=== PATIENT | female | born 1970 | race Caucasian/White ===

== ENCOUNTER → 2016-11-21 | Outpatient (CLI) | payer OTHER ==
[2016-11-21 16:45] LABS: CH 30.9; CHCM 32.9; HCT 44.9 % (34.0-46.0); HDW 2.51; HGB 14.5 gm/dL (11.4-16.0); MCH 30.4 pg (25.0-35.0); MCHC 32.2 g/dL (31.0-37.0); MCV 94.3 fL (80.0-100.0); Mean Platelet Volume 7.7; RBC 4.76 m/uL (3.80-5.40); RDW 13.5 % (11.5-15.5); WBC 10.7 k/uL (3.8-10.6)
[2016-11-21 16:53] LABS: Appearance,Urine Cloudy (Clear); Bacteria,Urine Rare /hpf; Bilirubin,Urine Negative (Negative); Glucose,Urine (UA) Negative (Negative); Ketones,Urine Negative (Negative); Leukocyte Esterase,Urine Negative (Negative); Mucus,Urine Rare /hpf; Nitrite,Urine Negative (Negative); Particle Count 3307; Protein,Urine Negative (Negative); RBC,Urine 2 /hpf (0-5); Specific Gravity,Urine 1.018 (1.001-1.035); Squamous Epithelial Cell,Urine 3 /hpf (0-4); UA Billing (MACRO vs. MICRO) MICRO; Urobilinogen,Urine <2.0 mg/dL (<2.0); WBC,Urine 2 /hpf (0-5)
[2016-11-21 17:14] LABS: Anion Gap 8 mmol/L; Blood Urea Nitrogen 15 mg/dL (7-17); Calcium 9.8 mg/dL (8.4-10.2); Carbon Dioxide 25 mmol/L (22-30); Chloride 108 mmol/L (98-107); Glucose 82 mg/dL (74-99); Iron 75 ug/dL (37-170); Non-African American GFR(MDRD) 54 (>60 ml/min/1.73 sqM); Potassium 4.9 mmol/L (3.5-5.1); Sodium 141 mmol/L (137-145)
[2016-11-21 17:23] LABS: % Iron Saturation 22.9 % (20-50); Total Iron Binding Capacity 327 ug/dL (265-497)
== END | disposition home or self-care (01) ==
LOC: LABWHC1 16:06
PROVIDERS: ATTEND Nurse Practitioner Family
DX: N18.3 Chronic kidney disease, stage 3 (moderate) (principal); D64.9 Anemia, unspecified; E83.39 Other disorders of phosphorus metabolism; M10.9 Gout, unspecified; N39.0 Urinary tract infection, site not specified
CPT/HCPCS: 36415; 80048; 81001; 82306; 82728; 83540; 83550; 83970; 85027

== ENCOUNTER → 2016-12-25 | Outpatient (CLI) | payer OTHER | END | disposition home or self-care (01) | LOC: LABWHC1 09:45 | PROVIDERS: ATTEND Family Medicine | DX: G62.9 Polyneuropathy, unspecified (principal) | CPT/HCPCS: 36415; 82390; 83921; 86141 ==

== ENCOUNTER → 2017-02-12 | Outpatient (CLI) | payer OTHER ==
--- NOTE | 2017-02-12 15:17 | CT ---
EXAMINATION TYPE: CT abdomen pelvis wo con DATE OF EXAM: 02/12/2017 2:13 PM COMPARISON: 09/26/2016 HISTORY: 47-year-old female Patient complains of bloating and pelvic pain. CT DLP: 1242.3 mGycm. Automated exposure control for dose reduction was used. TECHNIQUE: Contiguous axial scanning of the abdomen and pelvis without IV contrast. Coronal and sagit debbie reconstructions performed. FINDINGS: The heart is normal size without pericardial effusion. 5 mm left basilar pulmonary nodule unchanged f rom 09/26/2016. Additional 6 month follow-up CT chest can be performed to reassess. No pleural effusi on. Liver is borderline to mildly enlarged at 18.4 cm craniocaudal with mildly diminished attenuation sug gesting some degree of fatty infiltration. Cholecystectomy clips are present. Adrenal glands, kidneys, spleen, and pancreas appear within normal limits. Retroaortic left renal vein. No dilated small bowel, free fluid, or free air. No mesenteric or retroperitoneal lymphadenopathy. Interval placement of a distal aortobiiliac stents. Scattered mild to moderate stool without pericolonic inflammatory change. Bladder is urine distended. Uterus and ovaries are visualized. No abnormal fluid collection in the pe lvis nor pelvic lymphadenopathy. Bones: Degenerative changes lower lumbar spine. No osseous destructive process. IMPRESSION: 1. Correlate for hepatic steatosis with LFTs, lipid profile, and patient risk factors. 2. A 5 mm left basilar pulmonary nodule stable from 09/26/2016. Additional 6 month follow-up CT ches t can reassess. A total of 2 years of stability would help support a benign etiology. 3. Interval biiliac stent placement. Noncontrast examination limits assessment for patency.
== END | disposition home or self-care (01) ==
LOC: RADCTMAIN 13:56
PROVIDERS: ATTEND Family Medicine
DX: R10.9 Unspecified abdominal pain (principal); R14.0 Abdominal distension (gaseous); Z96.89 Presence of other specified functional implants
CPT/HCPCS: 74176

== ENCOUNTER → 2017-04-04 | Outpatient (CLI) | payer OTHER ==
[2017-04-04 17:27] LABS: ALT 21 U/L (9-52); AST 13 U/L (14-36)
[2017-04-04 18:16] LABS: Hepatitis C Virus IgG Ab Negative (Negative); Hepatitis C Virus IgG Index 0.02
== END ==
LOC: LABWHC1 16:12
PROVIDERS: ATTEND Family Medicine
DX: K76.0 Fatty (change of) liver, not elsewhere classified (principal)
CPT/HCPCS: 36415; 84450; 84460; 85610; 86803

== ENCOUNTER → 2017-04-05 | Outpatient (CLI) | payer OTHER ==
--- NOTE | 2017-04-06 10:15 | MR ---
MR left ankle and foot HISTORY: Pain, post trauma open reduction internal fixation, erythema and clicking Multiplanar multisequence imaging obtained through the left ankle and foot There is no plain film for correlation Multiple foci of susceptibility artifact are present at the lateral aspect of the ankle within the so ft tissues at the level of the distal fibula, there is some local bone marrow edema within the fibula with a suggested fracture line which is nondisplaced. Subcutaneous edema changes are present about t he ankle. Small focus of marrow edema present along the medial malleolus. There is spurring at the ti biotalar joint. Ossific density is present anterior to the joint compatible with loose body measuring 8 to 9 mm, there is a joint effusion present. Marrow edema also present within the cuboid. Some loca l thickening present at the peroneus longus tendon compatible with tendinosis. Some minimal marrow ed jf also present at the tarsometatarsal joint of the second digit most likely due to osteoarthritic c hange. Plantar aponeurosis, Achilles tendon are intact. Flexor and extensor tendons are intact, fluid present along the tibialis posterior tendon compatible with some tenosynovitis. Some increased signa l present at the posterior aspect of the talus may represent some marrow edema with minimally displac ed fracture rather than accessory ossicle, some remodeling may be present versus possibly posttraumat ic change. IMPRESSION: Findings compatible with fracture of the distal fibula, correlate with appropriate histor y, some local marrow edema persists. Peroneal tendinosis, local bone marrow edema at the cuboid may b e due to altered mechanics. Loose body within the ankle joint, osteoarthritis. Postop changes, correl ate for possible cellulitis, difficult to exclude infection at the patient's fracture site. Correlati on with plain film likely would be of benefit.
== END | disposition home or self-care (01) ==
LOC: RADMRIMAIN 19:37
PROVIDERS: ATTEND Family Medicine
DX: M19.072 Primary osteoarthritis, left ankle and foot (principal); M67.874 Other specified disorders of tendon, left ankle and foot; M24.072 Loose body in left ankle; Z98.890 Other specified postprocedural states

== ENCOUNTER → 2017-05-30 | Outpatient (CLI) | payer OTHER ==
[2017-05-30 15:45] LABS: CH 28.4; CHCM 32.1; HCT 46.3 % (34.0-46.0); HDW 2.76; MCH 28.7 pg (25.0-35.0); MCHC 32.3 g/dL (31.0-37.0); MCV 88.9 fL (80.0-100.0); RBC 5.21 m/uL (3.80-5.40); WBC 10.5 k/uL (3.8-10.6)
[2017-05-30 15:51] LABS: Anion Gap 12 mmol/L; Blood Urea Nitrogen 18 mg/dL (7-17); Calcium 9.6 mg/dL (8.4-10.2); Carbon Dioxide 19 mmol/L (22-30); Chloride 109 mmol/L (98-107); Glucose 117 mg/dL (74-99); Iron 27 ug/dL (37-170); Non-African American GFR(MDRD) 60 (>60 ml/min/1.73 sqM); Potassium 4.7 mmol/L (3.5-5.1); Sodium 140 mmol/L (137-145)
[2017-05-30 15:53] LABS: Appearance,Urine Cloudy (Clear); Bilirubin,Urine Negative (Negative); Glucose,Urine (UA) Negative (Negative); Ketones,Urine Negative (Negative); Leukocyte Esterase,Urine Small (Negative); Mucus,Urine Rare /hpf; Nitrite,Urine Negative (Negative); Particle Count 3550; Protein,Urine Trace (Negative); RBC,Urine 1 /hpf (0-5); Specific Gravity,Urine 1.019 (1.001-1.035); Squamous Epithelial Cell,Urine 10 /hpf (0-4); UA Billing (MACRO vs. MICRO) MICRO; Urobilinogen,Urine <2.0 mg/dL (<2.0); WBC,Urine 5 /hpf (0-5)
[2017-05-30 16:00] LABS: % Iron Saturation 6.5 % (20-50); Total Iron Binding Capacity 413 ug/dL (265-497)
== END | disposition home or self-care (01) ==
LOC: LABWHC1 15:08
PROVIDERS: ATTEND Nurse Practitioner Family
DX: N18.3 Chronic kidney disease, stage 3 (moderate) (principal); D63.1 Anemia in chronic kidney disease; N39.0 Urinary tract infection, site not specified; E21.3 Hyperparathyroidism, unspecified; E55.9 Vitamin D deficiency, unspecified
CPT/HCPCS: 36415; 80048; 81001; 82306; 82728; 83540; 83550; 83970; 85027

== ENCOUNTER → 2017-11-27 | Outpatient (CLI) | payer OTHER ==
[2017-11-27 16:10] LABS: Appearance,Urine Clear (Clear); Bilirubin,Urine Negative (Negative); Blood,Urine Negative (Negative); Color,Urine Yellow; Glucose,Urine (UA) Negative (Negative); Ketones,Urine Negative (Negative); Leukocyte Esterase,Urine Negative (Negative); Nitrite,Urine Negative (Negative); PH, Urine 6.5 (5.0-8.0); Protein,Urine Negative (Negative); Specific Gravity,Urine 1.019 (1.001-1.035); Urobilinogen,Urine <2.0 mg/dL (<2.0)
[2017-11-27 16:28] LABS: Calcium 9.7 mg/dL (8.4-10.2)
[2017-11-27 16:41] LABS: HCT 46.2 % (34.0-46.0); HGB 14.3 gm/dL (11.4-16.0); Hypochromasia Slight; MCH 26.3 pg (25.0-35.0); MCHC 30.9 g/dL (31.0-37.0); MCV 85.1 fL (80.0-100.0); Mean Platelet Volume 6.5; Platelet Count 470 k/uL (150-450); RBC 5.44 m/uL (3.80-5.40); RDW 15.2 % (11.5-15.5); WBC 12.2 k/uL (3.8-10.6)
[2017-11-28 01:15] LABS: Iron Saturation 7.55 (12.00-45.00)
[2017-11-28 01:25] LABS: Vitamin D 25 Hydroxy 39.4 ng/mL (30.0-100.0)
[2017-11-28 02:23] LABS: Parathyroid Hormone Intact 90.6 pg/mL (14.0-72.0)
== END | disposition home or self-care (01) ==
LOC: LABWHC1 15:07
PROVIDERS: ATTEND Nurse Practitioner Family
DX: N39.0 Urinary tract infection, site not specified (principal); E21.3 Hyperparathyroidism, unspecified; N18.3 Chronic kidney disease, stage 3 (moderate); D63.1 Anemia in chronic kidney disease; N25.81 Secondary hyperparathyroidism of renal origin
CPT/HCPCS: 36415; 80048; 81003; 82306; 82728; 83540; 83550; 83970; 85027

== ENCOUNTER → 2018-01-20 | Outpatient (CLI) | payer OTHER ==
[2018-01-20 11:24] LABS: Cholesterol 202 mg/dL (<200); HDL Cholesterol 35 mg/dL (40-60); LDL Cholesterol,Calculated 115 mg/dL (0-99); Triglycerides 259 mg/dL (<150)
== END | disposition home or self-care (01) ==
LOC: LABWHC1 10:39
PROVIDERS: ATTEND Internal Medicine Cardiovascular Disease
DX: E78.01 Familial hypercholesterolemia (principal)
CPT/HCPCS: 36415; 80061

== ENCOUNTER → 2018-06-06 | Outpatient (CLI) | payer OTHER ==
[2018-06-06 15:52] LABS: Calcium 10.3 mg/dL (8.4-10.2); Potassium 3.7 mmol/L (3.5-5.1)
[2018-06-06 15:57] LABS: Amorphous Sediment,Urine Few /hpf; Appearance,Urine Cloudy (Clear); Bilirubin,Urine Negative (Negative); Blood,Urine Negative (Negative); Color,Urine Yellow; Glucose,Urine (UA) Negative (Negative); Hyaline Casts,Urine 1 /lpf (0-2); Ketones,Urine Negative (Negative); Leukocyte Esterase,Urine Small (Negative); Mucus,Urine Occasional /hpf; Nitrite,Urine Negative (Negative); Protein,Urine Trace (Negative); RBC,Urine 1 /hpf (0-5); Specific Gravity,Urine 1.018 (1.001-1.035); Squamous Epithelial Cell,Urine 19 /hpf (0-4); Urobilinogen,Urine <2.0 mg/dL (<2.0); WBC,Urine 14 /hpf (0-5)
[2018-06-06 16:12] LABS: HCT 46.8 % (34.0-46.0); HGB 15.1 gm/dL (11.4-16.0); MCH 29.2 pg (25.0-35.0); MCHC 32.3 g/dL (31.0-37.0); MCV 90.1 fL (80.0-100.0); Platelet Count 427 k/uL (150-450); RBC 5.19 m/uL (3.80-5.40); RDW 14.4 % (11.5-15.5); WBC 14.7 k/uL (3.8-10.6)
[2018-06-06 19:14] LABS: Iron Saturation 15.85 (12.00-45.00)
[2018-06-06 19:24] LABS: Parathyroid Hormone Intact 31.7 pg/mL (14.0-72.0); Vitamin D 25 Hydroxy 49.4 ng/mL (30.0-100.0)
== END | disposition home or self-care (01) ==
LOC: LABWHC1 15:23
PROVIDERS: ATTEND Nurse Practitioner Family
DX: N18.3 Chronic kidney disease, stage 3 (moderate) (principal); D63.1 Anemia in chronic kidney disease; N25.81 Secondary hyperparathyroidism of renal origin; N39.0 Urinary tract infection, site not specified
CPT/HCPCS: 36415; 80048; 81001; 82306; 82728; 83540; 83550; 83970; 85027

== ENCOUNTER → 2018-07-08 | Outpatient (CLI) | payer OTHER ==
[2018-07-08 09:46] VITALS: BP 136/76; PULSE 73; TEMP 96.6; BMI 47.7
--- NOTE | 2018-07-08 11:43 | P.HPOB ---
History of Present Illness H&P Date: 07/08/18 Chief Complaint: The patients here for routine gynecologic exam and mammogram. This is a 48-year-old with an LMP of 06/20/2018. She is status post tubal ligation. The patient has multiple complaints. She states her menses are typically 7-10 days long with 4 days of heavy flow. She does have a history of anemia and has required iron infusions. She is status post endometrial ablation about 10 years ago. She states they did help slightly with her heavy menstrual periods, however the again became heavy after time. She is also complaining of decreased sex drive, facial hair growth and intermittent ovarian pains. She states she has to shave chin hair daily. Review of Systems She states her weight can fluctuate between 267 and 287 pounds. She believes she is gained 100 pounds over the past several years. She denies respiratory, cardiac, or G.I. problems. Past Medical History Past Medical History: Blood Disorder, Chest Pain / Angina, COPD, GERD/Reflux, Hyperlipidemia, Hypertension, Renal Disease (Renal failure), Supraventricular Tachycardia (SVT), Thyroid Disorder (Hypothyroid), Vascular Disorder (Aortic and iliac blockage requiring stents in 2016.) Additional Past Medical History / Comment(s): ANEMIA. Migraine headaches. 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 She is status post endometrial ablation in 2007. History of Any Multi-Drug Resistant Organisms: None Reported Past Surgical History: Cholecystectomy, Orthopedic Surgery (Foot and ankle), Tubal Ligation, Uterine Ablation Additional Past Surgical History / Comment(s): STENTS AORTA AND BILATERAL FEMORAL STENTS. Past Anesthesia/Blood Transfusion Reactions: No Reported Reaction Past Psychological History: Bipolar Additional Psychological History / Comment(s): OCD and personality disorder. Smoking Status: Former smoker (Quit 2013) Past Alcohol Use History: None Reported Past Drug Use History: Marijuana Additional History: She is . She has not been sexually active since 2016. - Past Family History Mother Family Medical History: Unable to Obtain Additional Family Medical History / Comment(s): She is adopted and knows only small amounts of her family's history. Father Family Medical History: Unable to Obtain Additional Family Medical History / Comment(s): Father committed suicide. Medications and Allergies Home Medications Medication Instructions Recorded Confirmed Type Acetaminophen-Codeine 300-30mg 1 tab PO DIRECTED PRN 12/16/17 07/08/18 History [Tylenol w/codeine #3] Asenapine Maleate [Saphris] 10 mg PO BID 12/16/17 07/08/18 History Atorvastatin [Lipitor] 80 mg PO DAILY 12/16/17 07/08/18 History Butalb/Acetaminophen/Caffeine 1 cap PO DIRECTED PRN 12/16/17 07/08/18 History [Fioricet 50-300-40 mg Capsule] Calcitriol 0.25 mcg PO DAILY 12/16/17 07/08/18 History Clopidogrel Bisulfate [Plavix] 75 mg PO DAILY 12/16/17 07/08/18 History Dextroamphetamine/Amphetamine 20 mg PO TID 12/16/17 07/08/18 History [Adderall] Enalapril [Vasotec] 5 mg PO DAILY 12/16/17 07/08/18 History Ergocalciferol [Vitamin D2 50,000 units PO WEEKLY 12/16/17 07/08/18 History (DRISDOL)] Gabapentin [Neurontin] 300 mg PO DAILY 12/16/17 07/08/18 History Levothyroxine Sodium [Synthroid] 200 mcg PO DAILY 12/16/17 07/08/18 History Magnesium Oxide 400 mg PO DAILY 12/16/17 07/08/18 History Propranolol HCl [Propranolol HCl 160 mg pe PO DAILY 12/16/17 07/08/18 History ER] amLODIPine [Norvasc] 10 mg PO DAILY 12/16/17 07/08/18 History clonazePAM [KlonoPIN] 0.5 mg PO DIRECTED 12/16/17 07/08/18 History lamoTRIgine [LaMICtal] 150 mg PO BID 12/16/17 07/08/18 History Allergies Allergy/AdvReac Type Severity Reaction Status Date / Time Penicillins Allergy Dyspnea Verified 07/08/18 09:21 Exam Vital Signs Temp Pulse BP 07/08/18 09:42 96.6 F L 73 136/76 Intake and Output 07/07/18 07/08/18 07/08/18 22:59 06:59 14:59 Other: Weight 126.099 kg Height 5'4", BMI 47.7. This is a well-developed well-nourished obese white female who is alert and oriented times 3 in no acute distress. HEENT: there are some signs of coarse facial hair growth of the chin. NECK: Supple without mass or thyromegaly. CHEST AND LUNGS: Clear to auscultation. HEART: Regular rate and rhythm. BREASTS: Are without mass or discharge. There is mild right generalized breast tenderness which she states she has had for many years. AXILLARY EXAM: Negative for adenopathy. BACK: Negative for CVA tenderness. ABDOMEN: Soft, obese, nontender, without palpable masses. PELVIC EXAM: Normal external genitalia. Cervix is multiparous without lesions and vagina appear normal. There is no unusual discharge. There is no evidence of prolapse. The uterus is midposition, multiparous, nongravid size and nontender. There are no palpable adnexal masses or tenderness. Bimanual examination is somewhat limited secondary to her size. RECTAL EXAM: negative for mass or tenderness and is negative for occult blood. EXTREMITIES: Nontender. IMPRESSION: 1. 48-year-old obese female status post tubal ligation with normal gynecologic exam. 2. Menorrhagia which probably is contributing to her anemia. The anemia may also be related to her chronic renal failure. Her heavy menstrual periods may also be related to her Plavix use. 3. Hypoactive sexual desire disorder. 4. Hirsutism PLAN: 1. Pap smear was performed. 2. Self breast awareness was discussed with the patient. 3. Diagnostic mammogram will be done today because of her abnormal mammogram in 2013 for which she did not have follow-up. 4. Lab tests will include FSH, estradiol, CBC, TSH, T4, total and free testosterone, and DHEA S. 5. All the culture son will be scheduled. 6. Consider for referral for possible hysterectomy. She states she is unable to take any type of NSAID medication. She is also not a good candidate for hormonal treatment for her menstrual periods. 7. She will also return in one year and PRN.
[2018-07-08 11:48] LABS: HCT 47.2 % (34.0-46.0); HGB 15.4 gm/dL (11.4-16.0); MCH 30.7 pg (25.0-35.0); MCHC 32.6 g/dL (31.0-37.0); MCV 94.3 fL (80.0-100.0); Mean Platelet Volume 6.4; Platelet Count 417 k/uL (150-450); RBC 5.01 m/uL (3.80-5.40)
[2018-07-08 12:23] LABS: T4, Free (Free Thyroxine) 1.81 ng/dL (0.78-2.19)
[2018-07-08 16:41] LABS: DHEA Sulfate 151.9 ug/dL (26.0-430.0)
--- NOTE | 2018-07-09 10:33 | MM ---
Reason for exam: follow-up at short interval from prior study. Last mammogram was performed 3 years and 10 months ago. History: Family history of breast cancer in maternal grandmother. Physical Findings: Dr. Mims did not find any significant physical abnormalities on exam. MG Diagnostic Mammo w CAD TOM Bilateral CC and MLO view(s) were taken. Prior study comparison: September 01, 2014, right breast MG work up mamm w CAD RT. August 25, 2014, bilateral MG screening mammo w CAD. There are scattered fibroglandular densities. Scattered round and punctate calcifications are unchanged. No significant new findings when compared with previous films. These results were verbally communicated with the patient and result sheet given to the patient on 07/08/18. ASSESSMENT: Negative, BI-RAD 1 RECOMMENDATION: Routine screening mammogram of both breasts in 1 year.
== END | disposition home or self-care (01) ==
LOC: WWCWWP 09:14
PROVIDERS: ATTEND Obstetrics & Gynecology
DX: R92.8 Other abnormal and inconclusive findings on diagnostic imaging of breast (principal); L68.0 Hirsutism; N92.0 Excessive and frequent menstruation with regular cycle; D64.9 Anemia, unspecified; F52.0 Hypoactive sexual desire disorder
CPT/HCPCS: 36415; 77066; 82627; 82670; 83001; 84402; 84403; 84439; 84443; 85027

== ENCOUNTER → 2018-07-15 | Outpatient (CLI) | payer OTHER ==
--- NOTE | 2018-07-15 13:45 | US ---
EXAMINATION TYPE: US pelvic complete DATE OF EXAM: 07/15/2018 COMPARISON: CT 02/12/2017, US 06/02/2014 CLINICAL HISTORY: N92.0 Menorrhagia, R10.2 Pelvic pain. Ablation about 15 years ago. Heavy periods TECHNIQUE: . Transabdominal sonographic images of the pelvis were acquired. Date of LMP: About 2 weeks ago EXAM MEASUREMENTS: Uterus: 11.3 x 5.5 x 6.6 cm Endometrial Stripe: 0.4 cm Right Ovary: 2.9 x 1.7 x 2.9 cm Left Ovary: 2.7 x 1.5 x 1.7 cm 1. Uterus: Anteverted Enlarged, heterogeneous 2. Endometrium: wnl 3. Right Ovary: Follicles visualized, largest measuring 1.3 cm 4. Left Ovary: wnl 5. Bilateral Adnexa: wnl 6. Posterior cul-de-sac: wnl IMPRESSION: 1. Simple appearing cyst measuring 1.3 cm right ovary.
== END | disposition home or self-care (01) ==
LOC: RADUSWWP 12:56
PROVIDERS: ATTEND Obstetrics & Gynecology
DX: R10.2 Pelvic and perineal pain (principal); N92.0 Excessive and frequent menstruation with regular cycle
CPT/HCPCS: 76856

== ENCOUNTER 2019-01-01 14:11 | Observation (INO) | payer OTHER ==
[2019-01-01 14:19] VITALS: RESP 18
[2019-01-01] MEDS ORDERED: NITROGLYCERIN OINT 1 INCH/GM PACKET TOPICAL STA (14:29)
[2019-01-01] MEDS ORDERED: ASPIRIN 81 MG PO STA (14:29)
--- NOTE | 2019-01-01 14:32 | ED ---
General Adult HPI - General Chief complaint: Chest Pain Stated complaint: Chest pain, sent by PCP Time Seen by Provider: 01/01/19 14:15 Source: patient, RN notes reviewed Mode of arrival: ambulatory Limitations: no limitations - History of Present Illness Initial comments: This is a 48-year-old female presents emergency Department complaining of some back pain that radiated to her chest and down her arm. Patient states the first time she had an episode of this was about 5 days ago. Patient states every time it occurs it lasts for a few hours and then eventually subsides. Patient states it is associated with some shortness of breath as well. Patient also states she has been diaphoretic when she gets this per patient states been intermittent for the last 5 days. Patient states went to see her primary medical care doctor and she wanted to be seen in emergency department. Patient states the pain now is subsided. Patient states she also has a MTHFR deficiency Patient states she also has a positive family history of heart disease. Patient states she is a smoker. Patient states she has diabetes and high blood pressure. She denies any lightheadedness dizziness. Patient denies any palpations. Patient isn't swelling to the legs or any calf tenderness. - Related Data Home Medications Medication Instructions Recorded Confirmed Acetaminophen-Codeine 300-30mg 1 tab PO DIRECTED PRN 12/16/17 07/31/18 [Tylenol w/codeine #3] Asenapine Maleate [Saphris] 10 mg PO BID 12/16/17 07/31/18 Atorvastatin [Lipitor] 80 mg PO DAILY 12/16/17 07/31/18 Butalb/Acetaminophen/Caffeine 1 cap PO DIRECTED PRN 12/16/17 07/31/18 [Fioricet 50-300-40 mg Capsule] Calcitriol 0.25 mcg PO DAILY 12/16/17 07/31/18 Clopidogrel Bisulfate [Plavix] 75 mg PO DAILY 12/16/17 07/31/18 Dextroamphetamine/Amphetamine 20 mg PO TID 12/16/17 07/31/18 [Adderall] Enalapril [Vasotec] 5 mg PO DAILY 12/16/17 07/31/18 Ergocalciferol [Vitamin D2 50,000 units PO WEEKLY 12/16/17 07/31/18 (DRISDOL)] Gabapentin [Neurontin] 300 mg PO DAILY 12/16/17 07/31/18 Levothyroxine Sodium [Synthroid] 200 mcg PO DAILY 12/16/17 07/31/18 Magnesium Oxide 400 mg PO DAILY 12/16/17 07/31/18 Propranolol HCl [Propranolol HCl 160 mg pe PO DAILY 12/16/17 07/31/18 ER] amLODIPine [Norvasc] 10 mg PO DAILY 12/16/17 07/31/18 clonazePAM [KlonoPIN] 0.5 mg PO DIRECTED 12/16/17 07/31/18 lamoTRIgine [LaMICtal] 150 mg PO BID 12/16/17 07/31/18 Desvenlafaxine Succinate [Pristiq] 50 mg PO DAILY 07/09/18 07/31/18 Allergies Allergy/AdvReac Type Severity Reaction Status Date / Time Penicillins Allergy Dyspnea Verified 01/01/19 14:16 Review of Systems ROS Statement: Those systems with pertinent positive or pertinent negative responses have been documented in the HPI. ROS Other: All systems not noted in ROS Statement are negative. Past Medical History Past Medical History: Blood Disorder, Chest Pain / Angina, COPD, GERD/Reflux, Hyperlipidemia, Hypertension, Renal Disease, Supraventricular Tachycardia (SVT) , Thyroid Disorder, Vascular Disorder Additional Past Medical History / Comment(s): ANEMIA. Migraine headaches. 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 She is status post endometrial ablation in 2007. History of Any Multi-Drug Resistant Organisms: None Reported Past Surgical History: Cholecystectomy, Orthopedic Surgery, Tubal Ligation, Uterine Ablation Additional Past Surgical History / Comment(s): STENTS AORTA AND BILATERAL FEMORAL STENTS. Past Anesthesia/Blood Transfusion Reactions: No Reported Reaction Past Psychological History: Bipolar Smoking Status: Former smoker Past Alcohol Use History: None Reported Past Drug Use History: Marijuana - Past Family History Mother Family Medical History: Unable to Obtain Additional Family Medical History / Comment(s): She is adopted and knows only small amounts of her family's history. Father Family Medical History: Unable to Obtain Additional Family Medical History / Comment(s): Father committed suicide. General Exam - General Exam Comments Initial Comments: GENERAL: Patient is well-developed and well-nourished. Patient is nontoxic and well- hydrated and is in mild distress. ENT: Neck is soft and supple. No significant lymphadenopathy is noted. Oropharynx is clear. Moist mucous membranes. Neck has full range of motion without eliciting any pain. EYES: The sclera were anicteric and conjunctiva were pink and moist. Extraocular movements were intact and pupils were equal round and reactive to light. Eyelids were unremarkable. PULMONARY: Unlabored respirations. Good breath sounds bilaterally. No audible rales rhonchi or wheezing was noted. CARDIOVASCULAR: There is a regular rate and rhythm without any murmurs gallops or rubs. ABDOMEN: Soft and nontender with normal bowel sounds. No palpable organomegaly was noted. There is no palpable pulsatile mass. SKIN: Skin is clear with no lesions or rashes and otherwise unremarkable. NEUROLOGIC: Patient is alert and oriented x3. Cranial nerves II through XII are grossly intact. Motor and sensory are also intact. Normal speech, volume and content. Symmetrical smile. MUSCULOSKELETAL: Normal extremities with adequate strength and full range of motion. No lower extremity swelling or edema. No calf tenderness. LYMPHATICS: No significant lymphadenopathy is noted PSYCHIATRIC: Normal psychiatric evaluation. Limitations: no limitations Course Vital Signs 01/01/19 14:16 Temperature 98 F Pulse Rate 94 Respiratory 18 Rate Blood Pressure 137/85 O2 Sat by Pulse 95 Oximetry Medical Decision Making - Medical Decision Making EKG shows normal sinus rhythm at 86 bpm ID interval 242 QRS is 96 QT interval 398 QTC is 476. Patient's EKG shows no ST segment elevation or depression however there is some Q waves in the inferior leads 3 and aVF Chest x-ray shows no acute abnormality. I spoke with Dr. Cotto he agreed to admit the patient admitted the patient I wrote admitting orders I consult cardiology I started the patient on heparin. Continue the heparin and aspirin and Nitropaste on the floor. - Lab Data Result diagrams: 01/01/19 14:50 Lab Results 01/01/19 01/01/19 01/01/19 Range/Units 14:50 14:50 14:50 WBC 10.1 (3.8-10.6) k/uL RBC 5.43 H (3.80-5.40) m/uL Hgb 16.7 H (11.4-16.0) gm/dL Hct 51.6 H (34.0-46.0) % MCV 95.0 (80.0-100.0) fL MCH 30.7 (25.0-35.0) pg MCHC 32.4 (31.0-37.0) g/dL RDW 14.0 (11.5-15.5) % Plt Count 352 (150-450) k/uL Neutrophils % 68 % Lymphocytes % 19 % Monocytes % 7 % Eosinophils % 2 % Basophils % 1 % Neutrophils # 6.9 (1.3-7.7) k/uL Lymphocytes # 1.9 (1.0-4.8) k/uL Monocytes # 0.7 (0-1.0) k/uL Eosinophils # 0.2 (0-0.7) k/uL Basophils # 0.1 (0-0.2) k/uL PT 10.2 (9.0-12.0) sec INR 0.9 (<1.2) APTT 24.8 (22.0-30.0) sec Troponin I <0.012 (0.000-0.034) ng/mL Critical Care Time Critical Care Time: Yes Total Critical Care Time: 35 Disposition Clinical Impression: Unstable angina pectoris Disposition: ADMITTED IP TO THIS [facility] Referrals: Audrey Kaiser MD [Primary Care Provider] - 1-2 days Time of Disposition: 17:48
[2019-01-01 15:13] LABS: Basophils # (A) 0.1 k/uL (0-0.2); Basophils % (A) 1 %; Eosinophils # (A) 0.2 k/uL (0-0.7); Eosinophils % (A) 2 %; HCT 51.6 % (34.0-46.0); HGB 16.7 gm/dL (11.4-16.0); Lymphocytes # (A) 1.9 k/uL (1.0-4.8); Lymphocytes % (A) 19 %; MCH 30.7 pg (25.0-35.0); MCHC 32.4 g/dL (31.0-37.0); Mean Platelet Volume 7.3; Monocytes # (A) 0.7 k/uL (0-1.0); Monocytes % (A) 7 %; Neutrophils # (A) 6.9 k/uL (1.3-7.7); Neutrophils % (A) 68 %; Platelet Count 352 k/uL (150-450); RBC 5.43 m/uL (3.80-5.40); WBC 10.1 k/uL (3.8-10.6)
[2019-01-01 15:41] LABS: INR 0.9 (<1.2); Partial Thromboplastin Time 24.8 sec (22.0-30.0); Prothrombin Time 10.2 sec (9.0-12.0)
--- NOTE | 2019-01-01 15:43 | XR ---
EXAMINATION TYPE: XR chest 2V DATE OF EXAM: 01/01/2019 COMPARISON: NONE HISTORY: Chest pain TECHNIQUE: Frontal and lateral views of the chest are obtained. FINDINGS: There is no focal air space opacity. No evidence for pneumothorax. No pleural effusion. The cardiac silhouette size is within normal limits. The osseous structures are grossly intact. IMPRESSION: 1. No acute cardiopulmonary process.
[2019-01-01] MEDS ORDERED: ACETAMINOPHEN TAB 500 MG TAB PO STA (17:42)
[2019-01-01 17:46] LABS: Calcium 9.6 mg/dL (8.4-10.2); Magnesium 1.9 mg/dL (1.6-2.3); Potassium 4.1 mmol/L (3.5-5.1); Total Bilirubin 0.4 mg/dL (0.2-1.3); Total Protein 6.8 g/dL (6.3-8.2)
[2019-01-01] MEDS ORDERED: HEPARIN SODIUM,PORCINE 5,000 UNIT/ML 1 ML VIAL IV ONE (17:49)
[2019-01-01] MEDS ORDERED: NITROGLYCERIN SL TABS 0.4 MG TAB SUBLINGUAL PRN (17:49)
[2019-01-01] MEDS ORDERED: HEPARIN SOD,PORK IN 0.45% NACL 25,000 UNIT in 0.45% NACL 1 250ML.BAG IV SCH (18:00)
[2019-01-01] MEDS ORDERED: BUTALB/APAP/CAFF 50-325-40MG TAB PO PRN (22:01)
[2019-01-01] MEDS ORDERED: GABAPENTIN 300 MG CAP PO SCH (22:15)
[2019-01-01] MEDS ORDERED: MAGNESIUM OXIDE 400 MG TAB PO SCH (22:15)
[2019-01-01] MEDS ORDERED: lamoTRIgine 100 MG TAB PO SCH (22:15)
[2019-01-01] MEDS ORDERED: amLODIPine 10 MG TAB PO SCH (22:15)
[2019-01-01] MEDS: clonazePAM 0.5 MG TAB PO SCH (22:37)
[2019-01-01] MEDS: ASENAPINE MALEATE 10 MG PO SCH (22:38)
[2019-01-02 01:47] LABS: Cholesterol 192 mg/dL (<200); HDL Cholesterol 28 mg/dL (40-60); LDL Cholesterol,Calculated 118 mg/dL (0-99); Triglycerides 232 mg/dL (<150)
[2019-01-02] MEDS ORDERED: HEPARIN SODIUM,PORCINE 5,000 UNIT/ML 1 ML VIAL IV PRN (01:48)
[2019-01-02] MEDS: NITROGLYCERIN OINT 1 INCH/GM PACKET TOPICAL SCH ×2 (02:21→02:22)
[2019-01-02] MEDS ORDERED: LEVOTHYROXINE 75 MCG TAB PO SCH (06:30)
[2019-01-02] MEDS ORDERED: FLUTICASONE 110 MCG INHALER INHALATION SCH (08:00)
[2019-01-02] MEDS ORDERED: NON-FORMULARY DRUG (Dextroamphetamine/Amphetamine [Adderall] 20 MG) PO SCH (08:00)
[2019-01-02] MEDS ORDERED: CAFFEINE CITRATE 60 MG/3 ML VIAL IV PRN (08:41)
[2019-01-02] MEDS ORDERED: REGADENOSON 0.4 MG/5 ML SYRINGE IV ONE (08:41)
[2019-01-02] MEDS ORDERED: DESVENLAFAXINE SUCCINATE 50 MG TAB.ER.24H PO SCH (09:00)
[2019-01-02] MEDS ORDERED: ASPIRIN 325 MG TAB PO SCH (09:00)
[2019-01-02] MEDS ORDERED: PROPRANOLOL LA 80 MG CAP.SA.24H PO SCH (09:00)
[2019-01-02] MEDS ORDERED: lamoTRIgine 100 MG TAB PO SCH (09:00)
[2019-01-02] MEDS ORDERED: LIOTHYRONINE SODIUM 5 MCG TAB PO SCH (09:00)
[2019-01-02] MEDS ORDERED: EZETIMIBE 10 MG TAB PO SCH (09:00)
[2019-01-02] MEDS ORDERED: ATORVASTATIN 80 MG TAB PO SCH (09:00)
[2019-01-02] MEDS ORDERED: CLOPIDOGREL 75 MG TAB PO SCH (09:00)
[2019-01-02] MEDS ORDERED: CHLORTHALIDONE 25 MG TAB PO SCH (09:00)
--- NOTE | 2019-01-02 10:37 | P.HPIM ---
History of Present Illness H&P Date: 01/02/19 This is a 48-year-old female patient who presented to the hospital complaints of pain that radiated to back and left arm. Patient states the pain has been intermittently occurring for the past several days and patient presented to her PCP which recommended patient proceed to ER for further evaluation. Patient does complain of shortness of breath with chest pain recurrence. Patient denies diaphoresis nausea vomiting or diarrhea. Chest x-ray completed in ER showing no acute cardiopulmonary process. EKG completed showing normal sinus rhythm, left axis deviation possible inferior infarct, age undetermined abnormal EKG. Patient does have a past medical history for anemia, chest pain, COPD, GERD, hyperlipidemia, hypertension, renal disease, SVT, thyroid disorder, vascular disease. Patient also reports she has stents to her aorta and bilateral femoral stents. Past psychosocial history of bipolar and OCD. Patient reports she was adopted unsure of her family health history. Patient denies nicotine dependence denies any history of [place] or previous cardiac stents. Patient has been started on heparin drip. 2-D echo and stress test has been ordered per cardiology. At this time patient denies chest pain or shortness breath. Patient denies nausea vomiting or diarrhea. Patient denies any urinary burning or frequency. Review of Systems Please refer to HPI otherwise unremarkable Past Medical History Past Medical History: Blood Disorder, Chest Pain / Angina, COPD, GERD/Reflux, Hyperlipidemia, Hypertension, Renal Disease, Supraventricular Tachycardia (SVT) , Thyroid Disorder, Vascular Disorder Additional Past Medical History / Comment(s): ANEMIA. Migraine headaches. 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 History of Any Multi-Drug Resistant Organisms: None Reported Past Surgical History: Cholecystectomy, Orthopedic Surgery, Tubal Ligation, Uterine Ablation Additional Past Surgical History / Comment(s): STENTS AORTA AND BILATERAL FEMORAL STENTS. Past Anesthesia/Blood Transfusion Reactions: No Reported Reaction Past Psychological History: Bipolar Additional Psychological History / Comment(s): OCD and personality disorder. Smoking Status: Former smoker Past Alcohol Use History: None Reported Past Drug Use History: Marijuana - Past Family History Mother Family Medical History: Unable to Obtain Additional Family Medical History / Comment(s): She is adopted and knows only small amounts of her family's history. Father Family Medical History: Unable to Obtain Additional Family Medical History / Comment(s): Father committed suicide. Medications and Allergies Home Medications Medication Instructions Recorded Confirmed Type Asenapine Maleate [Saphris] 10 mg PO BID 12/16/17 01/01/19 History Atorvastatin [Lipitor] 80 mg PO DAILY 12/16/17 01/01/19 History Clopidogrel Bisulfate [Plavix] 75 mg PO DAILY 12/16/17 01/01/19 History Ergocalciferol [Vitamin D2 50,000 units PO SA 12/16/17 01/01/19 History (DRISDOL)] Gabapentin [Neurontin] 300 mg PO HS 12/16/17 01/01/19 History Magnesium Oxide 400 mg PO HS 12/16/17 01/01/19 History Propranolol HCl [Propranolol HCl 160 mg PO DAILY 12/16/17 01/01/19 History ER] amLODIPine [Norvasc] 10 mg PO HS 12/16/17 01/01/19 History Desvenlafaxine Succinate [Pristiq] 50 mg PO DAILY 07/09/18 01/01/19 History Beclomethasone Dip 80 Mcg/Puff 2 - 3 puff INHALATION RT-QID 01/01/19 01/01/19 History [Qvar 80 mcg] Butalb/APAP/Caff 50-325-40Mg 1 - 2 tab PO Q4H PRN 01/01/19 01/01/19 History [Fioricet 50-325-40] Calcitriol 0.25 mcg PO SA 01/01/19 01/01/19 History Chlorthalidone [Hygroton] 25 mg PO DAILY 01/01/19 01/01/19 History Dextroamphetamine/Amphetamine 10 mg PO DAILY@1700 01/01/19 01/01/19 History [Adderall] Dextroamphetamine/Amphetamine 20 mg PO DAILY@0800,1200 01/01/19 01/01/19 History [Adderall] Ezetimibe [Zetia] 10 mg PO DAILY 01/01/19 01/01/19 History Levothyroxine Sodium [Synthroid] 150 mcg PO DAILY 01/01/19 01/01/19 History Liothyronine Sodium [Cytomel] 5 mcg PO BID 01/01/19 01/01/19 History clonazePAM [KlonoPIN] 0.5 mg PO TID 01/01/19 01/01/19 History lamoTRIgine [LaMICtal] 100 mg PO DAILY 01/01/19 01/01/19 History lamoTRIgine [LaMICtal] 200 mg PO HS 01/01/19 01/01/19 History Allergies Allergy/AdvReac Type Severity Reaction Status Date / Time Penicillins Allergy Dyspnea Verified 01/01/19 21:30 Physical Exam Vitals: Vital Signs Temp Pulse Pulse Resp BP BP BP 01/02/19 08:00 98.3 F 73 18 137/76 01/02/19 04:00 98.2 F 78 18 97/50 01/02/19 00:00 97.6 F 75 18 120/67 01/01/19 20:00 18 01/01/19 18:37 97.4 F L 83 18 132/71 01/01/19 14:16 98 F 94 18 137/85 Pulse Ox 01/02/19 08:00 98 01/02/19 04:00 94 L 01/02/19 00:00 94 L 01/01/19 20:00 01/01/19 18:37 96 01/01/19 14:16 95 Intake and Output 01/01/19 01/02/19 01/02/19 22:59 06:59 14:59 Intake Total 76.833 Balance 76.833 Intake: Intake, IV Titration 76.833 Amount Heparin Sod,Pork in 0.45% 76.833 NaCl 25,000 unit In 0.45 % NaCl 1 250ml.bag @ 8.5 UNITS/KG/HR 10.02 mls/hr IV .Q24H [facility] Rx#: [id number] Other: Voiding Method Toilet Toilet Toilet # Voids 1 Results CBC & Chem 7: 01/01/19 14:50 01/01/19 17:05 Labs: Abnormal Lab Results - Last 24 Hours (Table) 01/01/19 01/01/19 01/01/19 Range/Units 14:50 17:05 17:05 RBC 5.43 H (3.80-5.40) m/uL Hgb 16.7 H (11.4-16.0) gm/dL Hct 51.6 H (34.0-46.0) % BUN 20 H (7-17) mg/dL Triglycerides 232 H (<150) mg/dL LDL Cholesterol, Calc 118 H (0-99) mg/dL HDL Cholesterol 28 L (40-60) mg/dL Thrombosis Risk Factor Assmnt - Choose All That Apply Any of the Below Risk Factors Present?: Yes Each Factor Represents 1 point: Abnormal pulmonary function (COPD), Age 41-60 years, Obesity (BMI >25) Other Risk Factors: No Other congenital or acquired thrombophilia - If yes, enter type in comment: No Thrombosis Risk Factor Assessment Total Risk Factor Score: 3 Thrombosis Risk Factor Assessment Level: Moderate Risk Assessment and Plan Assessment: 1. Chest pain. Patient started on heparin drip. Troponins negative 3. Cardiology services following. 2-D echo ordered. Stress test ordered 2. History of stent to aorta and bilateral femoral stents. Patient is maintained on Plavix. Plavix has been resumed 3. History of COPD. No exacerbation at this time. Chest x-ray completed in ER showing no acute pulmonary process 4. History of GERD. 5. History of essential hypertension 8. History of hyperlipidemia 9. History of renal disease 10. History of depression and bipolar Time with Patient: Greater than 30 (Greater than 60% of the total time spent in counseling and coordination of care. I performed an examination of the patient and discussed their management with the Nurse Practitioner. I have reviewed the Nurse Practitioner's notes and agree with the documented findings and plan of care)
[2019-01-02] MEDS ORDERED: ONDANSETRON 4 MG/2 ML VIAL ONE (11:40)
[2019-01-02] MEDS: clonazePAM 0.5 MG TAB PO SCH (12:57)
[2019-01-02] MEDS: ASENAPINE MALEATE 10 MG PO SCH (12:59)
[2019-01-02 13:05] VITALS: BP 131/80; PULSE 86; TEMP 97.6
--- NOTE | 2019-01-02 13:08 | P.CRDCN ---
History of Present Illness History of present illness: This is a pleaseant 48-cayden-old female past medical history significant for hypertension, peripheral arterial disease s/p stent placement to abdominal aorta due to significant stenosis per the patient, dyslipidemia, chronic nicotine dependence and obesity. She follows with Dr. Sarah Foster for cardiology out of [facility]. We have been asked to see her in consultation for chest pain. She presented to her PCP office yesterday with symptoms of heaviness in the left precordial region with radiation through to her back in the left scapular region. The pain was worse with deep inspiration. No radiation down the arm, into the neck or jaw. She has felt mildy short of breath with exertion and has been coughing for the last week. She felt like she had bronchitis. She denies dizziness, nausea, vomiting, diaphoresis or palpitations. She continues to feel discomfort in her chest when she takes a deep breath. EKG reveals sinus mechanism with poor R-wave progression and inferior Q waves noted. Chest x-ray is negative for an acute cardiopulmonary process. Laboratory data reviewed, WBC 10.1, hemoglobin 16.7, platelets 352, sodium 138, potassium 4.1, creatinine 1.01, magnesium 1.9, cardiac enzymes negative 3, LDL 118 and HDL 28. Current cardiac medications include atorvastatin 80 mg daily, zetia 10 mg daily , Plavix 75 mg daily, diarrhea 10 mg daily, propanolol 160 mg daily and amlodipine 10 mg daily. At the time of my exam: CONSTITUTIONAL: Denies fever. Denies chills. EYES: Denies blurred vision. Denies vision changes. Denies eye pain. EARS, NOSE, MOUTH & THROAT: Denies headache. Denies sore throat. Denies ear pain. CARDIOVASCULAR: Denies chest pain. Denies shortness of breath. Denies orthopnea. Denies PND. Denies palpitations. RESPIRATORY: Denies cough. GASTROINTESTINAL: Denies abdominal pain. Denies diarrhea. Denies constipation. Denies nausea. Denies vomiting. MUSCULOSKELETAL: Denies myalgias. INTEGUMENTARY: Denies pruitis. Denies rash. NEUROLOGIC: Denies numbness. Denies tingling. Denies weakness. PSYCHIATRIC: Denies anxiety. Denies depression. ENDOCRINE: Denies fatigue. Denies weight change. Denies polydipsia. Denies polyurina. GENITOURINARY: Denies burning, hematuria or urgency with micturation. HEMATOLOGIC: Denies history of anemia. Denies bleeding. Blood pressure 137/76 heart rate 73 afebrile maintaining oxygen saturation on room air GENERAL: This is a 48-year-old occasion female in no apparent distress at the time of my examination. Obese. Appears much older than stated age. HEENT: Head is atraumatic, normocephalic. Pupils are equal, round. Sclerae anicteric. Conjunctivae are clear. Mucous membranes of the mouth are moist. Neck is supple. There is no jugular venous distention. No carotid bruit is heard. LUNGS: Clear to auscultation no wheezes, rales or rhonchi. No chest wall tenderness is noted on palpation or with deep breathing. Diminished bilaterally. HEART: Regular rate and rhythm without murmurs, rubs or gallops. S1 and S2 heard. ABDOMEN: Soft, nontender. Bowel sounds are heard. No organomegaly noted. EXTREMITIES: No evidence of peripheral edema and no calf tenderness noted. VASCULAR: Radial and dorsalis pedis pulses palpated, no evidence of clubbing. NEUROLOGIC: Patient is awake, alert and oriented x3. ASSESSMENT Chest pain, atypical for angina. Significant cardiacr risk factors. An acute coronary event has been ruled out. Dyslipidemia Peripheral arterial disease s/p abdominal aortic stent placement per the patient exact details unclear. Maintained on Plavix. Hypertension+ Morbid obesity, BMI 46 PLAN An acute coronary event has been ruled out. Discontinue heparin infusion. Obtain 2D echocardiogram and doppler study to assess cardiac structure and function. Perform Lexiscan stress test to assess for reversible cardiac ischemia. Smoking cessation recommended, she states she has cut back to occasional smoking only. Lifestyle modifications recommended for weight loss and lowering of LDL cholesterol further. Discussed with her the possible addition of Repatha to her dyslipidemia regimen considering she is already on maximum statin therapy as well as zetia. The importance of medications compliance discussed. Further recommendations to follow based on clinical course. Thank you kindly for this consultation. Nurse Practitioner note has been reviewed, I agree with a documented findings and plan of care. Patient was seen and examined. Past Medical History Past Medical History: Blood Disorder, Chest Pain / Angina, COPD, GERD/Reflux, Hyperlipidemia, Hypertension, Renal Disease, Supraventricular Tachycardia (SVT) , Thyroid Disorder, Vascular Disorder Additional Past Medical History / Comment(s): ANEMIA. Migraine headaches. 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 History of Any Multi-Drug Resistant Organisms: None Reported Past Surgical History: Cholecystectomy, Orthopedic Surgery, Tubal Ligation, Uterine Ablation Additional Past Surgical History / Comment(s): STENTS AORTA AND BILATERAL FEMORAL STENTS. Past Anesthesia/Blood Transfusion Reactions: No Reported Reaction Past Psychological History: Bipolar Additional Psychological History / Comment(s): OCD and personality disorder. Smoking Status: Former smoker Past Alcohol Use History: None Reported Past Drug Use History: Marijuana - Past Family History Mother Family Medical History: Unable to Obtain Additional Family Medical History / Comment(s): She is adopted and knows only small amounts of her family's history. Father Family Medical History: Unable to Obtain Additional Family Medical History / Comment(s): Father committed suicide. Medications and Allergies Home Medications Medication Instructions Recorded Confirmed Type Asenapine Maleate [Saphris] 10 mg PO BID 12/16/17 01/01/19 History Atorvastatin [Lipitor] 80 mg PO DAILY 12/16/17 01/01/19 History Clopidogrel Bisulfate [Plavix] 75 mg PO DAILY 12/16/17 01/01/19 History Ergocalciferol [Vitamin D2 50,000 units PO SA 12/16/17 01/01/19 History (DRISDOL)] Gabapentin [Neurontin] 300 mg PO HS 12/16/17 01/01/19 History Magnesium Oxide 400 mg PO HS 12/16/17 01/01/19 History Propranolol HCl [Propranolol HCl 160 mg PO DAILY 12/16/17 01/01/19 History ER] amLODIPine [Norvasc] 10 mg PO HS 12/16/17 01/01/19 History Desvenlafaxine Succinate [Pristiq] 50 mg PO DAILY 07/09/18 01/01/19 History Beclomethasone Dip 80 Mcg/Puff 2 - 3 puff INHALATION RT-QID 01/01/19 01/01/19 History [Qvar 80 mcg] Butalb/APAP/Caff 50-325-40Mg 1 - 2 tab PO Q4H PRN 01/01/19 01/01/19 History [Fioricet 50-325-40] Calcitriol 0.25 mcg PO SA 01/01/19 01/01/19 History Chlorthalidone [Hygroton] 25 mg PO DAILY 01/01/19 01/01/19 History Dextroamphetamine/Amphetamine 10 mg PO DAILY@1700 01/01/19 01/01/19 History [Adderall] Dextroamphetamine/Amphetamine 20 mg PO DAILY@0800,1200 01/01/19 01/01/19 History [Adderall] Ezetimibe [Zetia] 10 mg PO DAILY 01/01/19 01/01/19 History Levothyroxine Sodium [Synthroid] 150 mcg PO DAILY 01/01/19 01/01/19 History Liothyronine Sodium [Cytomel] 5 mcg PO BID 01/01/19 01/01/19 History clonazePAM [KlonoPIN] 0.5 mg PO TID 01/01/19 01/01/19 History lamoTRIgine [LaMICtal] 100 mg PO DAILY 01/01/19 01/01/19 History lamoTRIgine [LaMICtal] 200 mg PO HS 01/01/19 01/01/19 History Allergies Allergy/AdvReac Type Severity Reaction Status Date / Time Penicillins Allergy Dyspnea Verified 01/01/19 21:30 Physical Exam Vitals: Vital Signs Temp Pulse Pulse Resp BP BP BP 01/02/19 08:00 98.3 F 73 18 137/76 01/02/19 04:00 98.2 F 78 18 97/50 01/02/19 00:00 97.6 F 75 18 120/67 01/01/19 20:00 18 01/01/19 18:37 97.4 F L 83 18 132/71 01/01/19 14:16 98 F 94 18 137/85 Pulse Ox 01/02/19 08:00 98 01/02/19 04:00 94 L 01/02/19 00:00 94 L 01/01/19 20:00 01/01/19 18:37 96 01/01/19 14:16 95 Intake and Output 01/01/19 01/02/19 01/02/19 22:59 06:59 14:59 Intake Total 76.833 Balance 76.833 Intake: Intake, IV Titration 76.833 Amount Heparin Sod,Pork in 0.45% 76.833 NaCl 25,000 unit In 0.45 % NaCl 1 250ml.bag @ 8.5 UNITS/KG/HR 10.02 mls/hr IV .Q24H [facility] Rx#: [id number] Other: Voiding Method Toilet Toilet # Voids 1 Results 01/01/19 14:50 01/01/19 17:05 Cardiac Enzymes 01/01/19 01/01/19 01/01/19 Range/Units 14:50 17:05 20:12 AST 21 (14-36) U/L Troponin I <0.012 <0.012 (0.000-0.034) ng/mL 01/02/19 Range/Units 02:51 AST (14-36) U/L Troponin I <0.012 (0.000-0.034) ng/mL Coagulation 01/01/19 01/02/19 Range/Units 14:50 00:55 PT 10.2 (9.0-12.0) sec APTT 24.8 29.0 (22.0-30.0) sec Lipids 01/01/19 Range/Units 17:05 Triglycerides 232 H (<150) mg/dL Cholesterol 192 (<200) mg/dL HDL Cholesterol 28 L (40-60) mg/dL CBC 01/01/19 Range/Units 14:50 WBC 10.1 (3.8-10.6) k/uL RBC 5.43 H (3.80-5.40) m/uL Hgb 16.7 H (11.4-16.0) gm/dL Hct 51.6 H (34.0-46.0) % Plt Count 352 (150-450) k/uL Comprehensive Metabolic Panel 01/01/19 Range/Units 17:05 Sodium 138 (137-145) mmol/L Potassium 4.1 (3.5-5.1) mmol/L Chloride 104 (98-107) mmol/L Carbon Dioxide 26 (22-30) mmol/L BUN 20 H (7-17) mg/dL Creatinine 1.01 (0.52-1.04) mg/dL Glucose 89 (74-99) mg/dL Calcium 9.6 (8.4-10.2) mg/dL AST 21 (14-36) U/L ALT 38 (9-52) U/L Alkaline Phosphatase 80 (38-126) U/L Total Protein 6.8 (6.3-8.2) g/dL Albumin 4.0 (3.5-5.0) g/dL Current Medications Generic Name Dose Route Start Last Admin Trade Name Bryantq PRN Reason Stop Dose Admin Acetaminophen/Butalbital/Caffeine 2 each 01/01/19 22:01 Fioricet 50-325-40 PO Q4H PRN Headache Amlodipine Besylate 10 mg 01/01/19 22:15 01/01/19 22:37 Norvasc PO 10 mg HS [facility] Administration Aspirin 325 mg 01/02/19 09:00 Aspirin PO DAILY [facility] Atorvastatin Calcium 80 mg 01/02/19 09:00 Lipitor PO DAILY [facility] Calcitriol 0.25 mcg 01/03/19 12:00 Rocaltrol PO SA [facility] Chlorthalidone 25 mg 01/02/19 09:00 Hygroton PO DAILY [facility] Clonazepam 0.5 mg 01/01/19 22:15 01/01/19 22:37 Klonopin PO 0.5 mg TID [facility] Administration Clopidogrel Bisulfate 75 mg 01/02/19 09:00 Plavix PO DAILY [facility] Desvenlafaxine Succinate 50 mg 01/02/19 09:00 Pristiq Er PO DAILY [facility] Ezetimibe 10 mg 01/02/19 09:00 Zetia PO DAILY [facility] Ergocalciferol 50,000 unit 01/03/19 12:00 Vitamin D2 PO SA [facility] Fluticasone Propionate 2 puff 01/02/19 08:00 01/02/19 07:44 Flovent 110 Mcg Inhaler INHALATION 2 puff RT-BID [facility] Administration Gabapentin 300 mg 01/01/19 22:15 01/01/19 22:37 Neurontin PO 300 mg HS [facility] Administration Heparin Sodium (Porcine) 0 unit 01/02/19 01:48 01/02/19 01:58 Heparin IV 4,000 unit PER PROTOCOL PRN Administration Low PTT Protocol Lamotrigine 100 mg 01/02/19 09:00 Lamictal PO DAILY [facility] Lamotrigine 200 mg 01/01/19 22:15 01/01/19 22:37 Lamictal PO 200 mg HS [facility] Administration Levothyroxine Sodium 150 mcg 01/02/19 06:30 01/02/19 06:30 Synthroid PO 150 mcg 0630 [facility] Administration Liothyronine Sodium 5 mcg 01/02/19 09:00 Cytomel PO BID [facility] Magnesium Oxide 400 mg 01/01/19 22:15 01/01/19 22:37 Mag-Ox PO 400 mg HS [facility] Administration Nitroglycerin 0.4 mg 01/01/19 17:49 Nitrostat SUBLINGUAL Q5M PRN Chest Pain Non-Formulary Medication 10 mg 01/01/19 22:15 01/01/19 22:38 Asenapine Maleate [Saphris] PO Not Given BID [facility] Non-Formulary Medication 10 mg 01/02/19 17:00 Dextroamphetamine/Amphetamine [Adderall] PO DAILY@1700 [facility] Non-Formulary Medication 20 mg 01/02/19 08:00 Dextroamphetamine/Amphetamine [Adderall] PO DAILY@0800,1200 [facility] Propranolol HCl 160 mg 01/02/19 09:00 Inderal La PO DAILY [facility] Intake and Output 01/01/19 01/02/19 01/02/19 22:59 06:59 14:59 Intake Total 76.833 Balance 76.833 Intake: Intake, IV Titration 76.833 Amount Heparin Sod,Pork in 0.45% 76.833 NaCl 25,000 unit In 0.45 % NaCl 1 250ml.bag @ 8.5 UNITS/KG/HR 10.02 mls/hr IV .Q24H [facility] Rx#: [id number] Other: Voiding Method Toilet Toilet # Voids 1 01/01/19 14:50 01/01/19 17:05
--- NOTE | 2019-01-02 13:16 | NM ---
EXAMINATION TYPE: NM stress lexiscan cardiolite DATE OF EXAM: 01/02/2019 COMPARISON: NONE HISTORY: pain TECHNIQUE: After the intravenous administration of 10.36 mCi Tc 99m Sestamibi - Cardiolite resting S PECT images acquired 45 minutes post injection. The patient received 0.4mg Lexiscan, 25.3 mCi Tc 99m Sestamibi - Stress images obtained [address] injection FINDINGS: Review of stress and rest SPECT images demonstrates no distinct perfusion abnormality. Gated analysi s shows normal wall motion with an estimated left ventricular ejection fraction of 76 %. IMPRESSION: No scintigraphic evidence for reversible ischemia.
--- NOTE | 2019-01-02 14:27 | ECHOF ---
Referral Reason:Chest Pain MEASUREMENTS -------- HEIGHT: 160.0 cm WEIGHT: 117.9 kg BP: 137/76 RVIDd: 2.3 cm (< 3.3) IVSd: 1.2 cm (0.6 - 1.1) LVIDd: 4.0 cm (3.9 - 5.3) LVPWd: 1.2 cm (0.6 - 1.1) IVSs: 1.5 cm LVIDs: 2.8 cm LVPWs: 1.5 cm LAESV Index (A-L): 17.83 ml/m Ao Diam: 3.1 cm (2.0 - 3.7) LA Diam: 3.0 cm (2.7 - 3.8) MV E [place]: 0.80 m/s MV DecT: 271 ms MV A [place]: 0.78 m/s MV E/A Ratio: 1.02 FINDINGS -------- Sinus rhythm. This was a technically adequate study. The left ventricular size is normal. There is mild concentric left ventricular hypertrophy. Overa ll left ventricular systolic function is normal with, an EF between 55 - 60 %. The right ventricle is normal in size and function. Normal LA size by volume 22+/-6 ml/m2. The right atrium is normal in size. There is mild aortic valve sclerosis. There is no evidence of aortic regurgitation. There is no e vidence of aortic stenosis. The mitral valve leaflets are mildly thickened. There is trace mitral regurgitation. Trace tricuspid regurgitation present. Right ventricular systolic pressure is normal at < 35 mmHg. There is no evidence of pulmonary hypertension. The pulmonic valve was not well visualized. The aortic root size is normal. IVC Not well visulized. There is no pericardial effusion. CONCLUSIONS -------- 1. Sinus rhythm. 2. This was a technically adequate study. 3. The left ventricular size is normal. 4. There is mild concentric left ventricular hypertrophy. 5. Overall left ventricular systolic function is normal with, an EF between 55 - 60 %. 6. Normal LA size by volume 22+/-6 ml/m2. 7. There is mild aortic valve sclerosis. 8. The mitral valve leaflets are mildly thickened. 9. There is trace mitral regurgitation. 10. Trace tricuspid regurgitation present. 11. Right ventricular systolic pressure is normal at < 35 mmHg. 12. There is no evidence of pulmonary hypertension. 13. The pulmonic valve was not well visualized. 14. The aortic root size is normal. 15. IVC Not well visulized. 16. There is no pericardial effusion. ROAD ENGINEER: Esvin Reyna RDCS
--- NOTE | 2019-01-02 14:44 | P.DS ---
Providers Date of admission: 01/01/19 18:02 Expected date of discharge: 01/02/19 Attending physician: Kenneth Cotto Consults: 01/01/19 17:49 Consult Physician Urgent Consulting Provider: [facility] Consult Reason/Comments: Unstable angina Do you want consulting provider notified?: Yes Primary care physician: Audrey Kaiser Hospital Course: Discharge diagnosis 1. Chest pain. Patient started on heparin drip. Troponins negative 3. 2-D echo completed showing EF 55-60%. Lexiscan stress test completed showing no sonographic evidence of reversible ischemia. Discussed case with cardiology ASSOCIATE COUNSEL. Patient has been cleared for discharge from cardiology standpoint patient to follow-up with either patient's contact clerk to [facility] or with Dr. Coyne in 2-3 weeks 2. History of stent to aorta and bilateral femoral stents. Patient is maintained on Plavix. Plavix has been resumed 3. History of COPD. No exacerbation at this time. Chest x-ray completed in ER showing no acute pulmonary process 4. History of GERD. 5. History of essential hypertension 8. History of hyperlipidemia 9. History of renal disease 10. History of depression and bipolar 11. Nicotine dependence. Patient educated greater than 3 minutes cessation. Hospital course This is a 48-year-old female patient who presented to the hospital complaints of pain that radiated to back and left arm. Patient states the pain has been intermittently occurring for the past several days and patient presented to her PCP which recommended patient proceed to ER for further evaluation. Patient does complain of shortness of breath with chest pain recurrence. Patient denies diaphoresis nausea vomiting or diarrhea. Chest x-ray completed in ER showing no acute cardiopulmonary process. EKG completed showing normal sinus rhythm, left axis deviation possible inferior infarct, age undetermined abnormal EKG. Patient does have a past medical history for anemia, chest pain, COPD, GERD, hyperlipidemia, hypertension, renal disease, SVT, thyroid disorder, vascular disease. Patient also reports she has stents to her aorta and bilateral femoral stents. Past psychosocial history of bipolar and OCD. Patient reports she was adopted unsure of her family health history. Patient denies nicotine dependence denies any history of AK or previous cardiac stents. Patient has been started on heparin drip. 2-D echo and stress test has been ordered per cardiology. At this time patient denies chest pain or shortness breath. Patient denies nausea vomiting or diarrhea. Patient denies any urinary burning or frequency. Patient did undergo stress test. Stress test completed showing no sonographic evidence for reversible ischemia. Did discuss case with cardiology ASSOCIATE COUNSEL. Patient has been cleared for discharge from cardiology standpoint. Patient advised to either follow up with cardiology services are [facility] which she follows with or with [facility]. I performed an examination of the patient and discussed their management with the Nurse Practitioner. I have reviewed the Nurse Practitioner's notes and agree with the documented findings and plan of care Patient Condition at Discharge: Stable Plan - Discharge Summary Discharge Rx Participant: No New Discharge Prescriptions: Continue Clopidogrel Bisulfate [Plavix] 75 mg PO DAILY Magnesium Oxide 400 mg PO HS Gabapentin [Neurontin] 300 mg PO HS amLODIPine [Norvasc] 10 mg PO HS Propranolol HCl [Propranolol HCl ER] 160 mg PO DAILY Asenapine Maleate [Saphris] 10 mg PO BID Ergocalciferol [Vitamin D2 (DRISDOL)] 50,000 units PO SA Atorvastatin [Lipitor] 80 mg PO DAILY Desvenlafaxine Succinate [Pristiq] 50 mg PO DAILY Chlorthalidone [Hygroton] 25 mg PO DAILY Dextroamphetamine/Amphetamine [Adderall] 10 mg PO DAILY@1700 Dextroamphetamine/Amphetamine [Adderall] 20 mg PO DAILY@0800,1200 Liothyronine Sodium [Cytomel] 5 mcg PO BID Levothyroxine Sodium [Synthroid] 150 mcg PO DAILY clonazePAM [KlonoPIN] 0.5 mg PO TID Butalb/APAP/Caff 50-325-40Mg [Fioricet 50-325-40] 1 - 2 tab PO Q4H PRN PRN Reason: Headache Ezetimibe [Zetia] 10 mg PO DAILY Calcitriol 0.25 mcg PO SA Beclomethasone Dip 80 Mcg/Puff [Qvar 80 mcg] 2 - 3 puff INHALATION RT-QID lamoTRIgine [LaMICtal] 200 mg PO HS lamoTRIgine [LaMICtal] 100 mg PO DAILY Discharge Medication List Asenapine Maleate [Saphris] 10 mg PO BID 12/16/17 [History] Atorvastatin [Lipitor] 80 mg PO DAILY 12/16/17 [History] Clopidogrel Bisulfate [Plavix] 75 mg PO DAILY 12/16/17 [History] Ergocalciferol [Vitamin D2 (DRISDOL)] 50,000 units PO SA 12/16/17 [History] Gabapentin [Neurontin] 300 mg PO HS 12/16/17 [History] Magnesium Oxide 400 mg PO HS 12/16/17 [History] Propranolol HCl [Propranolol HCl ER] 160 mg PO DAILY 12/16/17 [History] amLODIPine [Norvasc] 10 mg PO HS 12/16/17 [History] Desvenlafaxine Succinate [Pristiq] 50 mg PO DAILY 07/09/18 [History] Beclomethasone Dip 80 Mcg/Puff [Qvar 80 mcg] 2 - 3 puff INHALATION RT-QID [History] Butalb/APAP/Caff 50-325-40Mg [Fioricet 50-325-40] 1 - 2 tab PO Q4H PRN 01/01/19 [History] Calcitriol 0.25 mcg PO SA 01/01/19 [History] Chlorthalidone [Hygroton] 25 mg PO DAILY 01/01/19 [History] Dextroamphetamine/Amphetamine [Adderall] 10 mg PO DAILY@1700 01/01/19 [History] Dextroamphetamine/Amphetamine [Adderall] 20 mg PO DAILY@0800,1200 01/01/19 [ History] Ezetimibe [Zetia] 10 mg PO DAILY 01/01/19 [History] Levothyroxine Sodium [Synthroid] 150 mcg PO DAILY 01/01/19 [History] Liothyronine Sodium [Cytomel] 5 mcg PO BID 01/01/19 [History] clonazePAM [KlonoPIN] 0.5 mg PO TID 01/01/19 [History] lamoTRIgine [LaMICtal] 100 mg PO DAILY 01/01/19 [History] lamoTRIgine [LaMICtal] 200 mg PO HS 01/01/19 [History] Follow up Appointment(s)/Referral(s): Audrey Kaiser MD [Primary Care Provider] - 1-2 days
--- NOTE | 2019-01-02 14:46 | EST ---
EXERCISE STRESS AGE: 48 SEX: F HT: 63" WT: 260 PROTOCOL: Lexiscan Cardiolite Stress Test HEART RATE REST: 81 BLOOD PRESSURE REST: 133/90 MAXIMUM HEART RATE ACHIEVED: 90 MAXIMUM BLOOD PRESSURE: 193/72 INDICATIONS: Chest pain. CLINICAL INFORMATION: STRESS DATA: Pretesting physical examination showed a heart rate of 81, pressure is 133/90 mmHg. Baseline EKG showed sinus mechanism, 0.4 mg was of Lexiscan given over 12 seconds per protocol. Max heart rate was 90 beats per minute. Maximum pressure was 193/72 mmHg. Clinically, the patient did not have any symptoms of chest pain or discomfort and the EKG did not show any significant ST or T-wave abnormalities concerning for ischemia. CONCLUSION: 1. Nondiagnostic electrocardiogram stress testing in response to Lexiscan. 2. Please follow up on the Cardiolite portion on separate report from the Radiology Department. MMODL / IJN: [id number] /
[2019-01-02 15:03] LABS: Basophils # (A) 0.1 k/uL (0-0.2); Basophils % (A) 1 %; Eosinophils # (A) 0.2 k/uL (0-0.7); Eosinophils % (A) 2 %; HCT 49.7 % (34.0-46.0); HGB 15.8 gm/dL (11.4-16.0); Lymphocytes # (A) 2.2 k/uL (1.0-4.8); Lymphocytes % (A) 23 %; MCH 30.6 pg (25.0-35.0); MCHC 31.8 g/dL (31.0-37.0); MCV 96.3 fL (80.0-100.0); Mean Platelet Volume 7.1; Monocytes # (A) 0.5 k/uL (0-1.0); Monocytes % (A) 5 %; Neutrophils # (A) 6.6 k/uL (1.3-7.7); Neutrophils % (A) 69 %; Platelet Count 327 k/uL (150-450); RBC 5.16 m/uL (3.80-5.40); WBC 9.6 k/uL (3.8-10.6)
[2019-01-02 15:16] LABS: ALT 36 U/L (9-52); AST 22 U/L (14-36); Albumin 3.9 g/dL (3.5-5.0); Alkaline Phosphatase 62 U/L (38-126); Anion Gap 10 mmol/L; Blood Urea Nitrogen 21 mg/dL (7-17); Calcium 9.4 mg/dL (8.4-10.2); Carbon Dioxide 26 mmol/L (22-30); Chloride 104 mmol/L (98-107); Glucose 184 mg/dL (74-99); Potassium 3.6 mmol/L (3.5-5.1); Sodium 140 mmol/L (137-145); Total Bilirubin 0.6 mg/dL (0.2-1.3); Total Protein 6.6 g/dL (6.3-8.2)
[2019-01-02] MEDS ORDERED: NON-FORMULARY DRUG (Dextroamphetamine/Amphetamine [Adderall] 10 MG) PO SCH (17:00)
[2019-01-03] MEDS ORDERED: CALCITRIOL 0.25 MCG CAP PO SCH (12:00)
[2019-01-03] MEDS ORDERED: ERGOCALCIFEROL 50,000 UNIT CAP PO SCH (12:00)
== END 2019-01-02 16:25 | disposition home or self-care (01) ==
LOC: EC 14:11 → 1SOBS 18:02
PROVIDERS: ADMIT Internal Medicine; ATTEND Internal Medicine
DX: I20.0 Unstable angina (principal); E11.51 Type 2 diabetes mellitus with diabetic peripheral angiopathy without gangrene; E66.01 Morbid (severe) obesity due to excess calories; E72.12 Methylenetetrahydrofolate reductase deficiency; Z82.49 Family history of ischemic heart disease and other diseases of the circulatory system; E78.5 Hyperlipidemia, unspecified; Z71.6 Tobacco abuse counseling; F17.200 Nicotine dependence, unspecified, uncomplicated; F42.9 Obsessive-compulsive disorder, unspecified; F60.9 Personality disorder, unspecified; I10 Essential (primary) hypertension; J44.9 Chronic obstructive pulmonary disease, unspecified; K21.9 Gastro-esophageal reflux disease without esophagitis; Z68.42 Body mass index [BMI] 45.0-49.9, adult; Z79.02 Long term (current) use of antithrombotics/antiplatelets; Z79.890 Hormone replacement therapy; Z79.899 Other long term (current) drug therapy
CPT/HCPCS: 96366 ×2; 96376; 96365; 99291; 36415; 94640; 93005; 93017; 93306; 80061; 80053 ×2; 83735; 84484 ×2; 85025 ×2; 85610; 85730 ×2; 71046; 78452; G0378 ×2; A9500; J1644 ×3; J2405; J2785

== ENCOUNTER → 2019-05-11 | Outpatient (CLI) | payer OTHER ==
--- NOTE | 2019-05-11 22:01 | CT ---
EXAMINATION TYPE: CT abdomen w con DATE OF EXAM: 05/11/2019 COMPARISON: 02/12/2017 HISTORY: 49-year-old female Intra-abdominal/pelvic swelling. Pt said recent US showed mass on LT side of liver. TECHNIQUE: Contiguous axial scanning of the abdomen abdomen following administration of 100 ml Isovue 300 IV contrast. Delayed images through the kidneys and coronal/sagittal reconstructions performed. CT DLP: 1918 mGycm Automated exposure control for dose reduction was used. FINDINGS: Heart normal size without pericardial effusion. Some patchy atelectasis or minimal infiltrate medial left base. No pleural effusion. Liver enlarged measuring 20.0 cm. There is marked decreased attenuation with fatty sparing along the corinne hepatis. There may be additional geographic fatty sparing along the peripheral right liver lobe and possible 4 .2 cm area along the right hepatic dome. No biliary ductal dilatation. The venous system is patent. Cholecystectomy clips. Adrenal glands, left kidney, spleen, and pancreas appear within normal limits. Right kidney is malrotated. Retroaortic left renal vein. Kissing bilateral iliac artery stents are present. No dilated small bowel, free fluid, or free air. No mesenteric or retroperitoneal lymphadenopathy. No significant stool burden. Oral contrast progressed distally into the lower descending colon. Pelvis is not imaged. Bones: Degenerative disc disease and facet arthropathy lower lumbar spine. IMPRESSION: 1. HEPATOMEGALY (20.0 CM) WITH MARKED HEPATIC STEATOSIS. THERE ARE GEOGRAPHIC AND MASSLIKE AREAS OF H IGHER DENSITY SUSPECTED TO REPRESENT AREAS OF FATTY SPARING. MULTIPHASIC LIVER MRI CAN PROVIDE MORE D ETAILED SOFT TISSUE ASSESSMENT AND EXCLUDE UNDERLYING MASS. 2. STATUS POST CHOLECYSTECTOMY. NO BILIARY DUCTAL DILATATION. 3. MILD PATCHY ATELECTASIS VERSUS EARLY INFILTRATE MEDIAL LEFT BASE. CORRELATE WITH PATIENT'S SYMPTOM S.
== END | disposition home or self-care (01) ==
LOC: RADCTMAIN 15:31
PROVIDERS: ATTEND Family Medicine
DX: K76.0 Fatty (change of) liver, not elsewhere classified (principal); R16.0 Hepatomegaly, not elsewhere classified; Z90.49 Acquired absence of other specified parts of digestive tract
CPT/HCPCS: 82565; 84520; 74160; 36415; Q9967

== ENCOUNTER → 2019-06-19 | Outpatient (CLI) | payer OTHER ==
--- NOTE | 2019-06-23 03:30 | MR ---
EXAMINATION TYPE: MR abdomen wo/w con DATE OF EXAM: 06/19/2019 COMPARISON: CT abdomen 05/11/2019. HISTORY: mass on liver per CT report, ab pain, 12ml contrast gadavist, CT on pacs CONTRAST: Standard multiplanar, multisequence MRI departmental protocol utilizing 12ml mL intravenous Gadavist gadolinium contrast. FINDINGS: Liver is enlarged and measures 24 cm in length. The bile ducts are not dilated. The pancrea tic duct appears normal. There is no evidence of pancreatic mass. Spleen appears normal. There is no adrenal mass. Kidneys show normal size and contour. There is no hydronephrosis. There is no sign of retroperitoneal adenopathy. There is fairly uniform signal pattern throughout the liver wi thout a discrete mass. There is no ascites. There is no pleural effusion. Contrast images show no pat hologic enhancement. Gallbladder is absent. IMPRESSION: Hepatomegaly. No focal liver defect. No evidence of discrete liver mass that is suggested by previous CT scan report. No dilated ducts.
== END | disposition home or self-care (01) ==
LOC: RADMRIMAIN 17:47
PROVIDERS: ATTEND Family Medicine
DX: R16.0 Hepatomegaly, not elsewhere classified (principal)
CPT/HCPCS: 74183; A9585

== ENCOUNTER → 2020-06-21 | Outpatient (CLI) | payer OTHER ==
[2020-06-21 15:06] LABS: Basophils # (A) 0.1 k/uL (0-0.2); Basophils % (A) 1 %; Eosinophils # (A) 0.1 k/uL (0-0.7); Eosinophils % (A) 1 %; HCT 51.5 % (34.0-46.0); HGB 16.4 gm/dL (11.4-16.0); Lymphocytes # (A) 2.1 k/uL (1.0-4.8); Lymphocytes % (A) 14 %; MCH 30.2 pg (25.0-35.0); MCHC 31.9 g/dL (31.0-37.0); MCV 94.8 fL (80.0-100.0); Mean Platelet Volume 7.4; Monocytes # (A) 0.7 k/uL (0-1.0); Monocytes % (A) 5 %; Neutrophils # (A) 11.7 k/uL (1.3-7.7); Neutrophils % (A) 78 %; Platelet Count 398 k/uL (150-450); RBC 5.43 m/uL (3.80-5.40); RDW 12.9 % (11.5-15.5)
[2020-06-21 15:23] LABS: Amorphous Sediment,Urine Rare /hpf; Appearance,Urine Turbid (Clear); Bacteria,Urine Few /hpf; Bilirubin,Urine Negative (Negative); Blood,Urine Large (Negative); Color,Urine Red; Glucose,Urine (UA) Negative (Negative); Ketones,Urine Negative (Negative); Leukocyte Esterase,Urine Small (Negative); Mucus,Urine Many /hpf; Nitrite,Urine Negative (Negative); PH, Urine 6.5 (5.0-8.0); Protein,Urine 1+ (Negative); RBC,Urine >182 /hpf (0-5); Squamous Epithelial Cell,Urine 12 /hpf (0-4); Urobilinogen,Urine <2.0 mg/dL (<2.0); WBC,Urine 50 /hpf (0-5)
[2020-06-21 16:07] LABS: Protein/Creatinine Ratio,Urine 0.321
[2020-06-21 18:42] LABS: % Iron Saturation 25.65 (12.00-45.00); African American GFR (CKD) 77.2 (60.0-200.0); Albumin 4.2 g/dL (3.80-4.90); Anion Gap 7.3 mmol/L (4.00-12.00); Calcium 9.9 mg/dL (8.7-10.3); Carbon Dioxide 23.7 mmol/L (21.6-31.8); Magnesium 1.8 mg/dL (1.5-2.4); Non-African American GFR(CKD) 66.6 (60.0-200.0); Phosphorus 3.2 mg/dL (2.4-5.1); Potassium 4.5 mmol/L (3.5-5.5); Uric Acid 6.5 mg/dL (2.9-7.7)
[2020-06-21 18:52] LABS: Ferritin 32.5 ng/mL (10.0-291.0)
== END | disposition home or self-care (01) ==
LOC: LABWHC1 14:16
PROVIDERS: ATTEND Nurse Practitioner Family
DX: N18.3 Chronic kidney disease, stage 3 (moderate) (principal); D63.1 Anemia in chronic kidney disease; E55.9 Vitamin D deficiency, unspecified; N25.81 Secondary hyperparathyroidism of renal origin; M10.9 Gout, unspecified; N39.0 Urinary tract infection, site not specified; R80.9 Proteinuria, unspecified
CPT/HCPCS: 36415; 80048; 81001; 82040; 82306; 82570; 82728; 83540; 83550; 83735; 83970; 84100; 84156; 84550; 85025; 87086

== ENCOUNTER → 2021-11-13 | Outpatient (CLI) | payer OTHER ==
--- NOTE | 2021-11-14 09:52 | MR ---
EXAMINATION TYPE: MR lumbar spine wo con DATE OF EXAM: 11/13/2021 COMPARISON: CT 05/11/2019 HISTORY: Chronic lower back pain, BLE radiculopathy. TECHNIQUE: Multiplanar, multisequence images of the lumbar spine were acquired without IV contrast. L1-L2: Normal disc appearance without desiccation. No herniation, protrusion or disc bulging. No ca nal stenosis is present. Foramina are patent bilaterally. L2-L3: Normal disc appearance without desiccation. No herniation, protrusion or disc bulging. No ca nal stenosis is present. Foramina are patent bilaterally. L3-L4: Normal disc appearance without desiccation. No herniation, protrusion or disc bulging. No ca nal stenosis is present. Foramina are patent bilaterally. Facet arthropathy changes present with hyp ertrophy ligamentum flavum greater on the left L4-L5: Normal disc appearance without desiccation. No herniation, protrusion or disc bulging. No ca nal stenosis is present. Foramina are patent bilaterally. Facet arthropathy changes present. L5-L6: Minimal posterior disc bulge is present causing anterior mass effect on the thecal sac. Hypert rophic changes of the facets are noted. L6-S1: No evident spinal stenosis, foraminal encroachment, or disc herniation. Facet arthropathy doran ges are extensive. Lumbar segments are intact. No paraspinal masses are identified. Conus medullaris has a normal appe arance. 6 nonrib-bearing lumbar segments are suspected. There is multilevel spondylosis, endplate dis cogenic marrow signal change. Loss of disc height and signal present L5 6, L6-S1, vacuum phenomenon p resent at L5-6. There are changes of epidural lipomatosis. No significant spinal stenosis or foramin al encroachment. Retroaortic left renal vein is present. IMPRESSION: Degenerative disc disease, facet arthropathy. Correlate with plain film prior to any intervention. Ad ditional findings above.
== END | disposition home or self-care (01) ==
LOC: RADMRIMAIN 19:32
PROVIDERS: ATTEND Physical Medicine & Rehabilitation
DX: M51.16 Intervertebral disc disorders with radiculopathy, lumbar region (principal); M47.26 Other spondylosis with radiculopathy, lumbar region
CPT/HCPCS: 72148

== ENCOUNTER → 2022-04-16 | Outpatient (CLI) | payer OTHER ==
[2022-04-16 14:31] LABS: Basophils # (A) 0.1 k/uL (0-0.2); Basophils % (A) 1 %; Eosinophils # (A) 0.2 k/uL (0-0.7); Eosinophils % (A) 2 %; HCT 48.9 % (34.0-46.0); HGB 15.4 gm/dL (11.4-16.0); Lymphocytes # (A) 2.7 k/uL (1.0-4.8); Lymphocytes % (A) 19 %; MCHC 31.4 g/dL (31.0-37.0); MCV 92.3 fL (80.0-100.0); Mean Platelet Volume 7.5; Monocytes # (A) 0.8 k/uL (0-1.0); Monocytes % (A) 6 %; Neutrophils # (A) 9.7 k/uL (1.3-7.7); Neutrophils % (A) 71 %; Platelet Count 309 k/uL (150-450); RDW 12.6 % (11.5-15.5); WBC 13.7 k/uL (3.8-10.6)
== END | disposition home or self-care (01) ==
LOC: LABWHC1 14:05
PROVIDERS: ATTEND Physical Medicine & Rehabilitation
DX: M46.1 Sacroiliitis, not elsewhere classified (principal)
CPT/HCPCS: 36415; 85025

== ENCOUNTER → 2022-07-06 | Outpatient (CLI) | payer OTHER ==
[2022-07-07 06:13] LABS: Gliadin AB IgA, Deaminated NEGATIVE (NEGATIVE); Gliadin AB IgA, Unit <0.2 U/mL; Gliadin AB IgG, Deaminated NEGATIVE (NEGATIVE); Gliadin AB IgG, Unit <0.4 U/mL
== END | disposition home or self-care (01) ==
LOC: LABWHC1 12:11
PROVIDERS: ATTEND Internal Medicine Gastroenterology
DX: K52.9 Noninfective gastroenteritis and colitis, unspecified (principal)
CPT/HCPCS: 36415; 83516; 85652; 86140

== ENCOUNTER → 2022-09-24 | Outpatient (CLI) | payer OTHER ==
--- NOTE | 2022-09-25 07:52 | MR ---
EXAMINATION TYPE: MR liver wo/w con DATE OF EXAM: 09/24/2022 COMPARISON: MRI abdomen June 19, 2019 and older studies through ultrasound abdomen 2013 HISTORY: Hepatomegaly CONTRAST: Standard multiplanar, multisequence MRI departmental protocol images were obtained without contrast a nd with 12 mL intravenous Gadavist gadolinium contrast. Imaging performed of the abdomen focusing on the liver. FINDINGS: Liver: Stable mild hepatomegaly. Diffuse signal dropout consistent with fatty infiltrative hepatocell ular disease is redemonstrated. Gallbladder noted surgically absent. No biliary dilatation. Patent no ndilated main portal vein and central portal veins. Patent hepatic veins draining into IVC. No concer boo solid or cystic intrahepatic mass. No adjacent ascites. Other: Lung bases remain grossly clear. The spleen, pancreas, and both adrenal glands appear within n ormal limits. There is no concerning solid or cystic pancreatic mass. No solid or cystic renal mass o r hydronephrosis is seen bilaterally. No suspicious small or large bowel dilatation. No intra-abdomin al ascites or greater than 1 cm adenopathy. Osseous structures are intact. IMPRESSION: Mild hepatomegaly with diffuse fatty infiltrative hepatocellular disease redemonstrated. No concernin g focal intrahepatic mass or intrahepatic ductal dilatation.No significant change from prior studies.
== END | disposition home or self-care (01) ==
LOC: RADMRIMAIN 13:57
PROVIDERS: ATTEND Family Medicine
DX: K76.0 Fatty (change of) liver, not elsewhere classified (principal); R16.0 Hepatomegaly, not elsewhere classified
CPT/HCPCS: 74183; A9585

== ENCOUNTER 2022-10-09 06:07 | Day surgery (SDC) | payer OTHER ==
[2022-10-08 10:18] VITALS: BMI 43.9
[2022-10-09] MEDS ORDERED: LACTATED RINGERS 1,000 ML IV SCH (06:19)
[2022-10-09 06:48] VITALS: TEMP 98
[2022-10-09] MEDS ORDERED: PROPOFOL 10 MG/ML 20 ML VIAL IV ONE (07:06)
[2022-10-09] MEDS ORDERED: MIDAZOLAM 2 MG/2 ML VIAL ONE (07:06)
[2022-10-09] MEDS ORDERED: fentaNYL (PF) 50 MCG/ML 2 ML AMP ONE (07:06)
--- NOTE | 2022-10-09 07:29 | P.PCN ---
Date of Procedure: 10/09/22 Procedure(s) Performed: Brief history: Patient is a pleasant 52-year-old white female scheduled for an elective upper endoscopy as well as colonoscopy as a part of evaluation of chronic intermittent nausea vomiting and diarrhea for the last 6 months duration. She is been having intermittent lower abdominal pain associated with loose watery bowel movements anywhere between 5-6 a day with no blood in the stool. Procedure performed: Esophagogastroduodenoscopy with biopsy Colonoscopy with biopsy Preoperative diagnosis: Intermittent episodes of nausea and vomiting Lower abdominal pain and chronic diarrhea Anesthesia: MAC Procedure: After informed consent was obtained from the patient was brought into the endoscopy unit and IV sedation was administered by anesthesia under continuous monitoring. Initially upper endoscopy was done. The Olympus GF 160 video endoscope was inserted inserted into the mouth and esophagus intubated without any difficulty and was gradually advanced into the stomach and duodenum and carefully examined. The bulb and second part of the duodenum appeared normal. Biopsies were done from the duodenum to rule out celiac disease The scope was then withdrawn into the stomach adequately insufflated with air and upon careful examination the antrum had mild diffuse gastritis and biopsies were done from this area. Mucosa of the body, cardia and fundus appeared normal. The scope was then withdrawn into the esophagus. The GE junction was located at 40 cm to the incisors. It appeared regular with no erythema erosions or ulcerations. Rest of the esophagus appeared normal. Patient tolerated the procedure well. At this time the patient continued to remain sedation. Initial digital rectal examination was normal. Olympus CF 160 video colonoscope was then inserted into the rectum and gradually advanced to the cecum without any difficulty. Careful examination was performed as the scope was gradually being withdrawn. The prep was excellent. The cecum, ascending colon, transverse colon, descending colon, sigmoid colon and rectum appeared normal. In the distal rectum there was a 3 mm polyp that was removed by cold biopsy. Random biopsies were done from ascending and descending colon to rule out microscopic/collagenous colitis. Retroflexion was performed in the rectum and no lesions were noted. Patient tolerated the procedure well. Impression: 1. Upper endoscopy revealed mild antral gastritis 2. Coloscopy revealed 3 mm rectal polyp status post cold biopsy. Rest of the colon appeared normal Recommendations: Findings of this examination were discussed with the patient as well as her family. She was advised to follow with the biopsy results. Continue with omeprazole 20 mg daily and follow antireflux measures. Recommend repeat screening colonoscopy in 5-10 years based the biopsy results.
[2022-10-09 07:51] VITALS: BP 148/78; PULSE 73; RESP 16
== END 2022-10-09 08:15 | disposition home or self-care (01) ==
LOC: ORWHC2ENDO 06:07
PROVIDERS: ATTEND Internal Medicine Gastroenterology
DX: K62.1 Rectal polyp (principal); K29.50 Unspecified chronic gastritis without bleeding; K52.9 Noninfective gastroenteritis and colitis, unspecified; Z88.0 Allergy status to penicillin
CPT/HCPCS: 88305; 45380; 43239; J2250; J3010; J2704

== ENCOUNTER → 2022-12-04 | Outpatient (CLI) | payer OTHER ==
--- NOTE | 2022-12-05 13:27 | CT ---
EXAMINATION TYPE: CT angio abd aorta w/Runoff CT DLP: 2047.6 mGycm, Automated exposure control for dose reduction was used. DATE OF EXAM: 12/04/2022 5:04 PM COMPARISON: CT abdomen pelvis 02/12/2017 and 05/11/2019, CT angiographic 09/26/2016 CLINICAL INDICATION:Female, 52 years old with history of I71.43, heaviness in legs TECHNIQUE: Multiple thin slice sub-millimeter images were obtained through the abdomen, pelvis, and l ower extremities after administration of contrast. 3-D reconstructed images and maximum intensity pr ojection images were obtained of the abdomen, pelvis, and lower extremities. CT Contrast: Contrast used:125cc mL of Isovue 370 without and with IV Contrast, Oral contrast used: None FINDINGS: CTA Abdomen and pelvis: No evidence for intramural hematoma on noncontrast imaging. The aorta demonst rates scattered atherosclerosis. There is no evidence of aneurysm. Origin of the celiac axis is compr essed upon the janneth of the diaphragm high-grade stenosis andr poststenotic dilatation up to 8 mm. T he superior mesenteric artery is patent. There are two left and one right renal artery. The arteries are patent. The inferior mesenteric arter y is patent. Bilateral common iliac stent graft is present which is new from prior study in 2016. There is plaque formation/neointimal hyperplasia of the proximal portions of the common iliac artery stents with at l east 25% stenosis on the right and 25-50% stenosis of the left. The remainder of the stents are paten t. External iliac arteries bilaterally are patent. No areas of significant stenosis. CTA Lower extremities: Right: The common femoral and superficial femoral arteries are patent. The popliteal artery is patent . Anterior and posterior tibial arteries as well as the peroneal artery are patent. Anterior and post erior tibial arteries cross the ankle. Left: The common femoral and superficial femoral arteries are patent. The popliteal artery is patent. Anterior and posterior tibial arteries as well as the peroneal artery are patent. Anterior and poste rior tibial arteries cross the ankle. LOWER CHEST: No evidence of focal consolidation, pneumothorax or pleural effusion. LIVER: Diffusely hypoattenuating parenchyma. GALLBLADDER AND BILE DUCTS: The gallbladder is surgically absent. PANCREAS: Unremarkable. SPLEEN: Unremarkable. ADRENAL GLANDS: Unremarkable. KIDNEYS AND URETERS: No evidence of hydronephrosis or renal calculus. The ureters are unremarkable. PELVIS BLADDER: Unremarkable REPRODUCTIVE: Unremarkable. ABDOMEN & PELVIS STOMACH AND BOWEL: No evidence of bowel obstruction. PERITONEUM: No evidence of pneumoperitoneum or free fluid. MUSCULOSKELETAL: No acute osseous abnormalities LYMPH NODES: No gross evidence for lymphadenopathy. SOFT TISSUE/ABDOMINAL WALL: Ventral wall fat-containing hernia. IMPRESSION 1. No evidence of vascular occlusion. 2. Bilateral common iliac stents with proximal plaque/neointimal hyperplasia formation with 25% sten osis on the right and 25-50% stenosis on the left proximal common iliac artery stents. 3. Portion of the celiac access at its origin with poststenotic dilatation suspicious for arcuate li gament syndrome. 4. Mild atherosclerosis disease involving abdominal aorta and lower extremity vasculature. 5. At least two vessels are seen crossing the ankle joints. 6. Marked Hepatic steatosis.
== END | disposition home or self-care (01) ==
LOC: RADCTMAIN 14:10
PROVIDERS: ATTEND Surgery
DX: I71.43 Infrarenal abdominal aortic aneurysm, without rupture (principal); K76.0 Fatty (change of) liver, not elsewhere classified; I70.0 Atherosclerosis of aorta
CPT/HCPCS: 75635; Q9967

== ENCOUNTER → 2023-04-10 | Outpatient (CLI) | payer OTHER ==
--- NOTE | 2023-04-10 13:39 | CTL ---
EXAMINATION TYPE: CT Low Dose Lung DATE OF EXAM ORDERED: 04/10/2023 HISTORY: Long-term tobacco use. Lung cancer screening CT DLP: 103.[address] CTDI: 2.6 mGy Automated exposure control for dose reduction was used. SCREENING VISIT: Baseline COMPARISON: None TECHNIQUE: Low dose computed tomography scan was performed through the chest at 1 mm thick sections a nd reconstructed images in multiple planes at 1 mm and [address] DIAGNOSTIC QUALITY: Limited, but interpretable Due to large body habitus. FINDINGS: LUNG NODULES: None. LUNGS: COPD: Severity: None Fibrosis: Severity: None Lymph nodes: None Other findings: None RIGHT PLEURAL SPACE: Effusion: None Calcification: None Thickening: None Pneumothorax: None LEFT PLEURAL SPACE: Effusion: None Calcification: None Thickening: None Pneumothorax: None HEART: Heart Size: Normal Coronary Calcification: None Pericardial Effusion: None OTHER FINDINGS: Upper abdomen: Liver is heterogeneously hypodense consistent with diffuse fatty infiltration. Cholecy stectomy clips are present. Bony thorax: None Supraclavicular region: None Other: None IMPRESSION: No concerning pulmonary nodules. CT LUNG RAD AND CT CHEST RECOMMENDATION: Lung-Rad 1 Negative: Continue annual screening with LDCT in 12 months. S Modifier (other clinically significant findings): None
== END | disposition home or self-care (01) ==
LOC: RADCTMAIN 12:35
PROVIDERS: ATTEND Family Medicine
DX: Z12.2 Encounter for screening for malignant neoplasm of respiratory organs (principal); F17.210 Nicotine dependence, cigarettes, uncomplicated
CPT/HCPCS: 71271

== ENCOUNTER → 2023-12-12 | Outpatient (CLI) | payer OTHER ==
[2023-12-12 13:24] LABS: African American GFR (CKD) >90 (>60 ml/min/1.73 sqM); Blood Urea Nitrogen 17 mg/dL (7-17); Non-African American GFR(CKD) 90 (>60 ml/min/1.73 sqM)
--- NOTE | 2023-12-12 16:28 | CT ---
EXAMINATION TYPE: CT angio abdomen pelvis DATE OF EXAM: 12/12/2023 COMPARISON: 12/04/2022 INDICATION: peripheral vasuclar disease DLP: 3393.6 mGycm, Automated exposure control for dose reduction was used. CONTRAST: 100 mL of Isovue 370. Study performed without Oral Contrast TECHNIQUE: Axial images were obtained from above the diaphragm to the pubic rami in the axial plane a t 5 mm thick sections. Reconstructed images are reviewed on the computer in the coronal plane. FINDINGS: Limited CT sections are obtained the lung bases. The lung bases are clear. CT ABDOMEN: Liver: There is moderate fatty infiltration to the liver. Spleen: Normal Pancreas: Normal Adrenal glands: The adrenal glands are normal. Gallbladder: Normal Kidneys: No masses are evident. No hydronephrosis is present. No cysts are present. Delayed images were obtained through the kidneys, which remain unremarkable. Aorta: Descending thoracic aorta is unremarkable. Celiac axis and superior mesenteric artery takeoffs appear normal. Renal artery origins appear normal. There is an accessory left renal artery superior to the main left renal artery. Vascular calcifications within the aorta. There is a retroaortic left renal vein. The inferior mesenteric artery appears normal. Vertebral artery is evident at this level as well. Just below the level of the inferior renal artery origin the abdominal aorta is occluded. No contrast is within the distal abdominal aorta. Dense calcification or stents are present within the iliac vessels. No contrast is evident within the common iliac vessels. The internal and extra iliac v essels appear to be reconstituted at the bifurcation. External iliac vessels to the common femoral ar teries are patent. Inferior vena cava: Normal. CT PELVIS: Loops of bowel within the abdomen and pelvis are normal. Studies lateral contrast limiting bowel evaluation. Appendix: Not identified. No dilated tubular structure or inflammatory changes evident. Urinary bladder: Normal. Genitourinary structures: Uterus is unremarkable. Adnexa are normal. Osseous structures: No suspicious lytic or sclerotic lesions. Facet degenerative changes are within t he lumbar spine. IMPRESSION: 1. Occlusion of the abdominal aorta below the inferior mesenteric artery origin. No contrast is with in the common iliac vessels. Intraluminal external iliac vessels are reconstituted from collateral fl ow with contrast extending to the common femoral arteries bilaterally.
== END | disposition home or self-care (01) ==
LOC: RADCTMAIN 12:33
PROVIDERS: ATTEND Surgery
DX: I73.9 Peripheral vascular disease, unspecified (principal)
CPT/HCPCS: 82565; 84520; 36415; 74174; Q9967

== ENCOUNTER → 2024-01-29 | Outpatient (CLI) | payer OTHER ==
--- NOTE | 2024-01-29 14:28 | US ---
EXAMINATION TYPE: US extremity nonvasculr ltd RT DATE OF EXAM: 01/29/2024 COMPARISON: NONE CLINICAL INDICATION: Female, 54 years old with history of M79.89 OTHER SPECIFIED SOFT TISSUE DISORDER S; There are hard, painful, non-mobile palpable areas extending from above the right hip to the proxi mal lateral thigh. They are fast growing and have developed over a few months per pt. TECHNIQUE: grayscale imaging the area of palpable abnormality in the right lateral hip. FINDINGS: Two most discernable areas measured: 3.5x1.4x3.0cm and 5.3x4.2x5.5cm of increased density was noted by card runner. IMPRESSION: There are 2 lesions in the patient's area of concern. Unclear etiology in setting of tra cristiana, these could represent resolving hematoma. Underlying lipomatous mass is another possibility vers us others other masses . Further evaluation with MRI recommended.
== END | disposition home or self-care (01) ==
LOC: RADUSWWP 13:38
PROVIDERS: ATTEND Physical Medicine & Rehabilitation Pain Medicine
DX: M79.89 Other specified soft tissue disorders (principal)

== ENCOUNTER → 2024-01-31 | Outpatient (CLI) | payer OTHER ==
--- NOTE | 2024-02-04 16:04 | MR ---
EXAMINATION TYPE: MR femur/thigh RT wo/w con DATE OF EXAM: 01/31/2024 COMPARISON: Ultrasound 01/29/2024 HISTORY: 54-year-old female R22.9 LOCALIZED SWELLING, MASS AND LUMP, UNSPECIFIED. Lump on Right side buttocks and lateral side of right thigh Technique: Multiplanar, multisequence images of the right femur were obtained before and after admini stration of 11.5 mL intravenous Gadavist gadolinium contrast. Coronal and axial images of the contral ateral, left side were obtained for comparison purposes. FINDINGS: There may be early degenerative change of both hips. Radiographs can provide more detailed assessment of the bony anatomy. Some degenerative change of the pubic symphysis. Otherwise, no acute fracture seen. The sacrum and SI joints appear intact. No suspicious bone marrow replacement. No hip joint effusion. The rectus femoris and hamstrings origins as well as the iliopsoas and gluteal insertions appear inta ct. No significant bony or soft tissue abnormality is seen with particular attention to the right buttock and lateral aspect of the right thigh. Bladder is nondistended. Uterus is anteverted. Both ovaries are visualized. Moderate to advanced hypertrophic facet arthropathy in the visualized lumbar spine. IMPRESSION: 1. No suspicious bony lesion or discrete soft tissue abnormality is identified to correspond to the a reas identified on 02/06/2024 ultrasound. Unclear if this reflects poorly encapsulated subcutaneous li pomas. Recommend ongoing clinical follow-up. Ultrasound follow-up in 2-3 months to reassess as well. Sooner if progressive enlargement is encountered. 2. No acute or healing fracture. There may be mild early degenerative change of the hip joints.
== END | disposition home or self-care (01) ==
LOC: RADMRIMAIN 10:54
PROVIDERS: ATTEND Family Medicine
DX: R22.41 Localized swelling, mass and lump, right lower limb (principal); R22.2 Localized swelling, mass and lump, trunk
CPT/HCPCS: 73720; A9585

== ENCOUNTER → 2025-03-24 | Outpatient (CLI) | payer OTHER ==
[2025-03-24 14:52] LABS: Basophils # (A) 0.08 X 10*3/uL (0.00-0.10); Basophils % (A) 0.9 %; Eosinophils # (A) 0.23 X 10*3/uL (0.04-0.35); Eosinophils % (A) 2.6 %; HCT 45.2 % (37.2-46.3); HGB 14.1 g/dL (12.0-15.0); Lymphocytes # (A) 2.68 X 10*3/uL (0.90-5.00); Lymphocytes % (A) 30.1 %; MCHC 31.2 g/dL (32.0-37.0); MCV 89.7 FL (80.0-97.0); Mean Platelet Volume 9.8 FL (9.5-12.2); Monocytes # (A) 0.68 X 10*3/uL (0.20-1.00); Monocytes % (A) 7.6 %; NRBC Per 100 WBC 0 X 10*3/uL (0.00-0.01); Neutrophils # (A) 5.23 X 10*3/uL (1.80-7.70); Neutrophils % (A) 58.7 %; Platelet Count 382 X 10*3/uL (140-440); RBC 5.04 X 10*6/uL (4.10-5.20); WBC 8.91 X 10*3/uL (4.50-10.00)
[2025-03-24 15:36] LABS: ALT 15 U/L (8-44); AST 12 U/L (13-35); Albumin 4.1 g/dL (3.8-4.9); Albumin/Globulin Ratio 1.64 Ratio (1.60-3.17); Alkaline Phosphatase 88 U/L (41-126); Bilirubin, Conjugated <0.20 mg/dL (0.20-0.40); Bilirubin,Unconjugated >0 mg/dL (0.20-1.00); Blood Urea Nitrogen 18.9 mg/dL (9.0-27.0); Calcium 9.7 mg/dL (8.7-10.3); Carbon Dioxide 21.6 mmol/L (21.6-31.8); Chloride 106 mmol/L (96-109); Chol/HDL Ratio 5.52 Ratio; Globulin 2.5 g/dL (1.6-3.3); Glucose 117 mg/dL (70-110); LDL Cholesterol,Calculated 88.4 mg/dL (0.0-131.0); Potassium 4.6 mmol/L (3.5-5.5); Sodium 139 mmol/L (135-145); T4, Free (Free Thyroxine) 0.37 ng/dL (0.80-1.80); Total Bilirubin 0.2 mg/dL (0.3-1.2); Total Protein 6.6 g/dL (6.2-8.2)
== END | disposition home or self-care (01) ==
LOC: LABWHC1 09:37
PROVIDERS: ATTEND Dermatology MOHS-Micrographic Surgery
DX: L73.2 Hidradenitis suppurativa (principal); F31.74 Bipolar disorder, in full remission, most recent episode manic; Z79.899 Other long term (current) drug therapy
CPT/HCPCS: 36415; 80053; 80061; 82248; 83036; 84439; 84443; 84479; 85025; 86480